=== PATIENT | female | born 1950 | race Caucasian/White ===

== ENCOUNTER 2018-08-26 08:16 | Outpatient (REF) | payer MEDICARE, SELFPAY ==
[2018-08-26 22:00] LABS: ALT 24 U/L (12-78); AST 19 U/L (15-37); Alkaline Phosphatase 74 U/L (46-116); Anion Gap 11.7 mmol/L (3-11); BUN 18 mg/dL (7-18); Bilirubin, Total 0.6 mg/dL (0.2-1.0); CO2 25.3 mmol/L (21.0-32.0); CREATININE 0.71 mg/dL (0.55-1.02); Calcium 9.2 mg/dL (8.5-10.1); Chloride 102 mmol/L (98-107); Glucose 89 mg/dL (70-100); Potassium 4.1 mmol/L (3.5-5.1); Sodium 139 mmol/L (136-145); Total Protein 7.1 g/dL (6.4-8.2)
[2018-08-26 22:14] LABS: Cholesterol 195 mg/dL (50-200); HDL Cholesterol 74 mg/dL (40-60); LDL CHOLESTEROL 91 mg/dL (<100); Triglyceride 181 mg/dL (30-150)
== END 2018-08-26 08:36 ==
LOC: NCHCN 08:16
PROVIDERS: PCP Family Medicine; Visit Provider Family Medicine
DX: E78.5 Hyperlipidemia, unspecified (principal)
CPT/HCPCS: 80053; 80061; 83721

== ENCOUNTER 2019-06-29 15:52 | Outpatient (REF) | payer MEDICARE, SELFPAY ==
[2019-06-29 21:40] LABS: Abs Immature Grans 0.03 k/cumm (0.0-0.09); Absolute Basophil Count 0.02 k/cumm (0.0-0.2); Absolute Eosinophil Count 0.03 k/cumm (0.0-0.7); Absolute Monocyte Count 0.89 k/cumm (0.11-0.7); Basophils % 0.2; Eosinophils % 0.3; HCT 46.1 % (36.0-46.0); HGB 15.5 g/dL (12.0-15.5); Immature Grans % 0.3; Mean Corp. HGB Concentration 33.6 g/dL (32.0-36.0); Mean Corpuscular Hemoglobin 29.9 pg (27.0-33.0); Mean Corpuscular Volume 88.8 fL (80-95); Mean Platelet Volume 12.2 fL (8.0-11.0); Monocytes % 7.9; Neutrophils % 67.3; Platelet Count 232 x1000/uL (130-400); RBC 5.19 m/cumm (4.00-5.20); RBC Distribution Width 13.4 % (11.7-14.6); White Blood Cell Count 11.25 k/cumm (4.4-10.8)
[2019-06-29 21:41] LABS: Absolute Neutrophil Count 7.57 k/cumm (1.2-6.7)
[2019-06-29 21:59] LABS: ALT 21 U/L (14-59); AST 14 U/L (15-37); Albumin 4.4 g/dL (3.4-5.0); Alkaline Phosphatase 79 U/L (46-116); Anion Gap 15.4 mmol/L (3-11); BUN 20 mg/dL (7-18); Bilirubin, Total 0.4 mg/dL (0.2-1.0); CO2 22.6 mmol/L (21.0-32.0); CREATININE 0.83 mg/dL (0.55-1.02); Calcium 9.3 mg/dL (8.5-10.1); Chloride 102 mmol/L (98-107); Glucose 89 mg/dL (70-100); HDL Cholesterol 85 mg/dL (40-60); LDL CHOLESTEROL 88 mg/dL (<100); Potassium 4.4 mmol/L (3.5-5.1); Sodium 140 mmol/L (136-145)
[2019-06-29 22:21] LABS: Hemoglobin A1C 5.6 % (4.5-6.2)
[2019-06-29 22:28] LABS: Creatine Kinase 66 U/L (26-192); Total Protein 7.7 g/dL (6.4-8.2)
== END 2019-06-29 16:12 ==
LOC: NCHCN 15:52
PROVIDERS: PCP Family Medicine; Visit Provider Nurse Practitioner Family
DX: E78.5 Hyperlipidemia, unspecified (principal); R42 Dizziness and giddiness; K30 Functional dyspepsia; R79.89 Other specified abnormal findings of blood chemistry
CPT/HCPCS: 80053; 82550; 83721; 83036; 83718; 85025

== ENCOUNTER 2019-10-08 12:27 | Outpatient (REF) | payer MEDICARE, SELFPAY ==
[2019-10-08 19:37] LABS: Anion Gap 13.1 mmol/L (3-11); BUN 15 mg/dL (7-18); CO2 24.9 mmol/L (21.0-32.0); CREATININE 0.71 mg/dL (0.55-1.02); Calcium 9.4 mg/dL (8.5-10.1); Chloride 103 mmol/L (98-107); Glucose 90 mg/dL (74-106); Sodium 141 mmol/L (136-145)
== END 2019-10-08 12:47 ==
LOC: NCHCN 12:27
PROVIDERS: PCP Family Medicine; Visit Provider Family Medicine
DX: I10 Essential (primary) hypertension (principal)
CPT/HCPCS: 80048

== ENCOUNTER 2019-11-10 02:13 | Outpatient (CLI) | payer MEDICARE, SELFPAY ==
--- NOTE | 2019-11-10 12:39 | DI.MAMMO_ITS ---
EXAM: MAMMO SCREENING CLINICAL HISTORY: SCREENING, [facility] Z00.00 TECHNIQUE: Mammograms were interpreted according to the usual protocol including computer analysis w [employer] system, tomosynthesis and C-view imaging. FINDINGS: The breasts are of moderate density with fairly symmetrical distribution of fibroglandular tissue. N o dominant mass or clumped microcalcification is identified in either breast. Current examination is compared with previous examinations including April 2018 and there has been no gross interval change in appearance in comparison with the previous studies. IMPRESSION: No specific evidence of malignancy at this time. Routine screening examinations are suggested at year ly intervals in this age group according to the ACS ACR guidelines. Category 1. Breast density, categ ory B. BI-RADS Cat 1 - Negative. Breast Density - Category B - Scattered areas of fibroglandular density.
== END 2019-11-10 02:33 ==
PROVIDERS: PCP Family Medicine; Visit Provider Family Medicine
DX: Z12.31 Encounter for screening mammogram for malignant neoplasm of breast (principal)
CPT/HCPCS: 77063; 77067

== ENCOUNTER → 2020-10-05 12:40 | Outpatient (BNVA) | payer MEDICARE, SELFPAY | PROVIDERS: PCP Family Medicine; Referring Provider Family Medicine; Visit Provider Nurse Practitioner Gerontology | DX: N39.46 Mixed incontinence (principal) | CPT/HCPCS: 81003; 99204 ==

== ENCOUNTER 2020-11-06 03:24 | Outpatient (CLI) | payer MEDICARE, SELFPAY ==
[2020-11-07 19:36] LABS: COVID-19 RT-PCR UVMMC Result Negative (Negative)
== END 2020-11-06 03:44 ==
PROVIDERS: Urology; PCP Family Medicine; Visit Provider Nurse Practitioner Gerontology
DX: Z11.59 Encounter for screening for other viral diseases (principal)
CPT/HCPCS: U0003

== ENCOUNTER 2020-11-10 06:12 | Day surgery (SDC) | payer MEDICARE, SELFPAY ==
[2020-11-10 06:22] VITALS: BP 139/88; PULSE 90; RESP 18; TEMP 36.7; O2SAT 97
[2020-11-10] MEDS: Lactated Ringers 1,000 ML 80 ML IV (06:53)
[2020-11-10] MEDS: CIPROFLOXACIN 400 MG/200 ML BAG 200 MG IVPB (07:04)
--- NOTE | 2020-11-10 07:05 | HPE_ITS ---
Date of service: 11/10/20 Time of Service: 07:06 Assessment and Plan Assessment and plan (1) Urinary urgency: Status: Acute Assessment and plan: For cystoscopy with transurethral injection of Botox 100 units into detrusor muscle. History of Present Illness History of Present Illness Chief Complaint: Urgency Incontinence Narrative: Gill is a 70-year-old female referred to urology by [facility] for urinary incontinence. Patient states that he is a mix of stress and urge incontinence but more urge incontinence that she would like addressed. She was on oxybutynin for several years and found it to be helpful until recently. Her PCP increase the dosage from 10 to 15 mg and in doing so caused tongue numbness. Patient is hesitant for any other medications related to this adverse effect. Patient notes that she has the ability to hold her urine unless she has a strong urge sensation and will not make it to the bathroom in time. Patient did undergo a procedure with Dr. Gomez several years ago for a sling. She finds it helps with her stress incontinence. She questions if she empties completely due to at times needing to add back to the bathroom shortly after she just voids. She notes that she has a slow stream. She has not seen blood in her urine. She denies dysuria, suprapubic discomfort, and flank pain. Review of Systems Narrative: No fevers or chills No dysphasia No diabetes or thyroid dysfunction No shortness of breath, cough or hemoptysis No chest pain or palpitations Hx GERD. No hepatitis, ulcers, jaundice, diarrhea or constipation No seizures, strokes or peripheral neuropathy No bleeding disorders or anemia No gout PFSH Medical History Acute tear medial meniscus Bursitis Colonoscopy planned Dizziness Glossodynia HLD (hyperlipidemia) Hypercholesteremia Hypertension Jaw fracture 1991 Overweight Stress Trochanteric bursitis of both hips Urinary incontinence Urinary urgency Surgical History Anterior Colporrhaphy Family History Mother Diabetes Essential hypertension Hyperlipidemia Father Essential hypertension Hyperlipidemia Myocardial infarction Social History Smoking/Tobacco Use Status: Never Smoking risk assessment performed?: Yes Alcohol Intake: current Alcohol Intake frequency: a few times a week Alcohol type: beer and hard liquor Substance use type: does not use Do you feel safe at home: Yes Do you feel safe in your relationship?: Yes Meds Home Medications and Allergies Home Medications Medication Instructions Recorded Confirmed Type rosuvastatin [Crestor] 20 mg PO DAILY tab-cap 03/13/18 11/10/20 History omeprazole 20 mg capsule,delayed 20 mg PO DAILY PRN 08/16/20 11/10/20 History release cholecalciferol (vitamin D3) 10 10 mcg PO DAILY 10/05/20 11/10/20 History mcg (400 unit) capsule sodium hyaluronate (viscosup) mg INTRA-ARTICULAR .q 7-8 months 10/05/20 10/05/20 History ml valsartan 40 mg tablet 40 mg PO DAILY tab 10/05/20 11/10/20 History Allergies Allergy/AdvReac Type Severity Reaction Status Date / Time Penicillins Allergy Severe Anaphylaxsi Unverified 11/10/20 06:31 s shellfish derived Allergy Severe Hives Unverified 11/10/20 06:31 Exam Const General: cooperative and comfortable Neck Neck: supple Resp Effort & Inspection: normal respiratory effort Auscultation: clear to auscultation bilaterally Cardio Rate: regular rate Rhythm: regular rhythm GI Palpation: soft and no guarding Neuro General: patient alert, patient awake and patient oriented x3 Results Last Vital Signs Temp 36.7 C 11/10/20 06:22 Pulse 90 11/10/20 06:22 Resp 18 11/10/20 06:22 BP 139/88 11/10/20 06:22 Pulse Ox 97 11/10/20 06:22 COVID-19 Screening Have you, or household traveled for leisure in last 14 days?: No Had IN PERSON contact w/suspected or confirmed C-19 person: No
[2020-11-10] MEDS: Lidocaine 2% Jelly 6 ML SYR (07:35)
--- NOTE | 2020-11-10 07:50 | W.PM.DSUDISC ---
Discharge Plan Disposition Patient Disposition: HOME Condition: Stable Discharge Details Reason For Visit: Urgency incontinence Attending Provider: Bob Dowell Primary Care Provider: Kiarra Degroot V Home Meds and New Rx's Prescriptions: No Action valsartan 40 mg tablet 40 mg PO DAILY RF: 0 cholecalciferol (vitamin D3) 10 mcg (400 unit) capsule 10 mcg PO DAILY RF: 0 Euflexxa 10 mg/mL(mw 2.4 -3.6 million) syringe intra-articular .q 7-8 months RF: 0 rosuvastatin [Crestor] 20 MG tablet 20 mg PO DAILY RF: 0 omeprazole 20 mg capsule,delayed release(DR/EC) 20 mg PO DAILY PRNRF: 0 Discharge Instructions Additional Instructions: No followup appt needed but ask pt to call office in @ 1 week to give us a progress report Activity:: Activity as Tolerated Shower/Bathe:: 24 hours Diet:: As Tolerated Discharge Orders Discharge Orders: Discharge Order (Routine); Ordered 11/10/20 Ordered By: Bob Dowell Discharge Data Discharge Comment: pt must void prior to discharge DS: Diagnosis Discharge Diagnosis (1) Urinary urgency: Status: Acute
--- NOTE | 2020-11-10 07:54 | W.PM.OP ---
Date of service: 11/10/20 Time of Service: 07:54 Operative Note Operative Note DATE OF PROCEDURE: 11/10/20 PRE-OP DIAGNOSIS: Urgency Incontinence POST-OP DIAGNOSIS: same PROCEDURE: Cystoscopy with transurethral injection of Botox into bladder SURGEON: Bob Dowell ANESTHESIA: other (general without intubation) ESTIMATED BLOOD LOSS: 0 PATHOLOGY: none sent COMPLICATIONS: None Patient was transported to: same day Patient's condition: stable Indications: This is a 70-year-old woman who has a history of urinary urgency and urgency incontinence. She had minimal improvement with anticholinergics and developed side effects related to higher dosing of anticholinergics. She elected not to try additional oral medications. She presents for an injection of Botox into the detrusor Findings: Normal-appearing bladder mucosa Procedure Description: The patient was brought to the operating room on 11/10/2020. After successful induction of general anesthesia without intubation, she was placed in the dorsal lithotomy position. Her genitalia was prepped and draped. 2% Xylocaine jelly was instilled into the urethra to act as a local anesthetic. A 20 Frisian urethrotome sheath was passed through the urethra into the bladder. The bladder was inspected with a 30 degree lens. The bladder mucosa was smooth with no papillary or nodular lesions. The base of the bladder was just slightly descended. Using a transurethral injection system, 100 units of Botox mixed in 20 mL of saline was injected into the detrusor muscle. We used a total of 20 injection sites on the posterior bladder wall. We used the grid pattern with 5 vertical rows and 4 horizontal rows. We avoided the trigone and the bladder neck with our injections. She tolerated this procedure well. She was taken back to the day surgery unit in stable condition.
[2020-11-10] MEDS: Phenazopyridine 200 MG TAB PO (08:17)
[2020-11-10 08:28] VITALS: BP 134/78; PULSE 72; RESP 17; TEMP 36.2; O2SAT 97
== END 2020-11-10 08:48 | disposition home or self-care (01) ==
PROVIDERS: PCP Family Medicine; Visit Provider Urology
PROC: (CPT 52287; principal; 2020-11-10 07:30)
DX: R39.15 Urgency of urination (principal)
CPT/HCPCS: 52287; NC; J0585; J0744; J2001; J2704

== ENCOUNTER 2021-02-06 12:38 | Outpatient (REF) | payer MEDICARE, SELFPAY ==
[2021-02-06 15:22] LABS: ALT 24 U/L (14-59); AST 18 U/L (15-37); Albumin 4.1 g/dL (3.4-5.0); Alkaline Phosphatase 87 U/L (46-116); Anion Gap 12.9 mmol/L (3-11); BUN 25 mg/dL (7-18); CO2 27.1 mmol/L (21.0-32.0); Calcium 9.2 mg/dL (8.5-10.1); Calculated LDL 85 mg/dL (<100); Chloride 105 mmol/L (98-107); Cholesterol 190 mg/dL (<200); Estimated GFR 54.66 (mL/min/1.73m2); Glucose 87 mg/dL (74-106); HDL Cholesterol 75 mg/dL (40-60); Potassium 4.6 mmol/L (3.5-5.1); Sodium 145 mmol/L (136-145); Total Protein 7.5 g/dL (6.4-8.2); Triglyceride 153 mg/dL (<150)
[2021-02-06 15:38] LABS: Bilirubin, Total 0.4 mg/dL (0.2-1.0)
== END 2021-02-06 12:39 | disposition home or self-care (01) ==
LOC: NCHCN 12:38
PROVIDERS: PCP Family Medicine; Visit Provider Family Medicine
DX: E78.89 Other lipoprotein metabolism disorders (principal); R79.89 Other specified abnormal findings of blood chemistry
CPT/HCPCS: 80053; 80061; 87077; 87086; 87186

== ENCOUNTER 2021-05-01 16:24 | Outpatient (REF) | payer MEDICARE, SELFPAY | END 2021-05-01 16:25 | disposition home or self-care (01) | LOC: NCHCN 16:24 | PROVIDERS: PCP Family Medicine; Visit Provider Family Medicine | DX: N39.0 Urinary tract infection, site not specified (principal) | CPT/HCPCS: 87077; 87086; 87186 ==

== ENCOUNTER → 2021-05-22 14:23 | Outpatient (BNVA) | payer MEDICARE, SELFPAY | PROVIDERS: PCP Family Medicine; Referring Provider Family Medicine; Visit Provider Nurse Practitioner Gerontology | DX: R39.15 Urgency of urination (principal); R32 Unspecified urinary incontinence | CPT/HCPCS: 99213 ==

== ENCOUNTER 2021-06-14 03:19 | Outpatient (CLI) | payer MEDICARE, SELFPAY ==
--- NOTE | 2021-06-14 | DI.DEXA_ITS ---
Exam(s) XR DEXA BONE DENSITY W/WO WILL EXAM: XR DEXA BONE DENSITY W/WO WILL CLINICAL HISTORY: SCREENING FOR OSTEOPOROSIS IN POSTMENOPAUSAL WOMAN,Z78.0,PREVENTATIVE HEALT TECHNIQUE: COMPARISON: Comparison examination is 06/25/2011. FINDINGS: Lateral Spine Image: Unremarkable. No compression deformities identified. Left hip: Total T-Score: 0.7. This compares to 1.4 on the prior examination. Total Z-Score: 2.3 T- and Z-scores: Within normal limits. Lumbar Spine: Total T-Score: 2.0. This compares to 1.4 on the prior examination. Total Z-Score: 4.2 T- and Z-scores: Within normal limits. IMPRESSION: No evidence of osteoporosis.
--- NOTE | 2021-06-14 | DI.MAMMO_ITS ---
Exam(s) MAMMO SCREENING EXAM: MAMMO SCREENING CLINICAL HISTORY: SCREENING, [facility],Z00.00 TECHNIQUE: Bilateral full field digital CC and MLO mammographic images were obtained with 3D tomosyn thesis and utilizing computer aided detection (CAD). COMPARISON: Available for comparison. FINDINGS: Masses/Architectural Distortion: None seen. Microcalcifications: No suspicious pleomorphic-type are seen. Skin Thickening/Nipple Retraction: None. IMPRESSION: 1. No significant interval change with no specific features of malignancy noted. 2. Unless there is more urgent need, screening mammography is recommended, as per [employer] guidelines. BI-RADS Category 1 - Negative Breast Density - Category B - Scattered areas of fibroglandular density Breast density category C or D implies that the patient has dense breast tissue. Dense breast tissue is very common and is not abnormal but dense breast tissue can make it harder to find cancer on a ma mmogram. Also, dense breast tissue may increase their breast cancer risk. This information about the result of the mammogram report was provided to the patient to raise their awareness. Use this report when you speak with the patient about their risks for breast cancer, which includes their family hist ory. At that time, you may recommend for more screening tests (Ultrasound or MRI) as they might be us eful based on their risk. A negative radiographic report should not delay biopsy if a dominant or clinically suspicious mass is present. Up to ten percent of cancers are not identified on mammography. A negative report may reinforce clinical impression. Adenosis and dense breasts may obscure an underlying neoplasm. False positive reports average 6 to 10%. Patient will receive a letter notifying them of these results.
== END 2021-06-14 03:39 ==
PROVIDERS: PCP Family Medicine; Visit Provider Family Medicine
DX: Z00.00 Encounter for general adult medical examination without abnormal findings (principal); Z13.820 Encounter for screening for osteoporosis; Z78.0 Asymptomatic menopausal state
CPT/HCPCS: 77063; 77067; 77080

== ENCOUNTER 2021-06-22 02:16 | Outpatient (CLI) | payer MEDICARE, SELFPAY ==
[2021-06-22 15:26] LABS: Source Nasal/Nares
[2021-06-22 17:59] LABS: COVID-19 PCR Negative (Negative)
== END 2021-06-22 02:17 | disposition home or self-care (01) ==
LOC: LBO 02:16
PROVIDERS: PCP Family Medicine; Visit Provider Urology
DX: Z20.822 Contact with and (suspected) exposure to COVID-19 (principal); Z01.818 Encounter for other preprocedural examination
CPT/HCPCS: 87635

== ENCOUNTER 2021-06-25 06:16 | Day surgery (SDC) | payer MEDICARE, SELFPAY ==
[2021-06-25 06:39] VITALS: BP 133/72; PULSE 75; RESP 18; TEMP 36.3; O2SAT 97
--- NOTE | 2021-06-25 06:53 | HPE_ITS ---
Date of service: 06/25/21 Time of Service: 06:53 Assessment and Plan Assessment and plan (1) Urinary urgency: Status: Acute (2) Urinary incontinence: Status: Acute Assessment and plan: For cystoscopy with transurethral injection of Botox into the detrusor muscle History of Present Illness History of Present Illness Chief Complaint: Urgency Incontinence Narrative: Gill is a 70-year-old female that is seen here in the urology clinic for urinary incontinence. She has a mix of stress and urge incontinence but finds that her urge incontinence is more notable. She did undergo a round of Botox injections approximately [address] Dowell. She found that the treatment worked for approximately 3 months and then has been wearing off since then. She would like to be considered for another round of Botox since she no joanie a positive effect from it. She still finds that there is some effect of the Botox but it is very minor and she is having more urinary leakage at this time. She currently denies dysuria, gross hematuria, suprapubic discomfort, flank pain or retention. She feels that she can empty out adequately. She has had no major health changes over the last 6 months. Review of Systems Narrative: No fevers or chills No vision change or dysphasia No diabetes or thyroid No shortness of breath, cough or hemoptysis No chest pain or palpitations Hx GERD. No hepatitis, ulcers, jaundice, diarrhea or constipation No seizures, strokes or peripheral neuropathy No bleeding disorders or anemia No gout PFSH Medical History Acute tear medial meniscus Bursitis Colonoscopy planned Dizziness Glossodynia HLD (hyperlipidemia) Hypercholesteremia Hypertension Jaw fracture 1991 Overweight Stress Trochanteric bursitis of both hips Urinary incontinence Urinary urgency Surgical History Anterior Colporrhaphy Family History Mother Diabetes Essential hypertension Hyperlipidemia Father Essential hypertension Hyperlipidemia Myocardial infarction Social History Smoking/Tobacco Use Status: Never Smoking risk assessment performed?: Yes Alcohol Intake: current Alcohol Intake frequency: a few times a week Alcohol type: beer and hard liquor Drug use: Never Substance use type: does not use Do you feel safe at home: Yes Do you feel safe in your relationship?: Yes Meds Allergies and Home Medications Allergies Allergy/AdvReac Type Severity Reaction Status Date / Time Penicillins Allergy Severe Anaphylaxsi Unverified 06/25/21 06:22 s shellfish derived Allergy Severe Hives Unverified 06/25/21 06:22 Home Medications Medication Instructions Recorded Confirmed Type rosuvastatin [Crestor] 20 mg PO DAILY tab-cap 03/13/18 06/25/21 History omeprazole 20 mg capsule,delayed 20 mg PO DAILY PRN 08/16/20 06/25/21 History release cholecalciferol (vitamin D3) 10 10 mcg PO DAILY 10/05/20 06/25/21 History mcg (400 unit) capsule sodium hyaluronate (viscosup) 10 mg INTRA-ARTICULAR .q 7-8 10/05/20 06/25/21 History months ml aspirin 81 mg tablet,delayed 81 mg PO DAILY 05/22/21 06/22/21 History release losartan 25 mg tablet 25 mg PO DAILY 05/22/21 06/25/21 History Exam Const General: cooperative and comfortable Neck Neck: supple Resp Effort & Inspection: normal respiratory effort Auscultation: clear to auscultation bilaterally Cardio Rate: regular rate Rhythm: regular rhythm GI Palpation: no masses Neuro General: patient alert, patient awake and patient oriented x3 Results Last Vital Signs Temp 36.3 C L 06/25/21 06:39 Pulse 75 06/25/21 06:39 Resp 18 06/25/21 06:39 BP 133/72 06/25/21 06:39 Pulse Ox 97 06/25/21 06:39
--- NOTE | 2021-06-25 06:59 | ANES.PREOP_ITS ---
General Info Date of Service Date Performed: 06/25/21 Height: 5 ft 1 in Weight: 85.6 kg Body Mass Index (BMI): 35.6 Surgical Procedure: Operation Date: 06/25/21 07:40 Proposed Procedures Side Surgeon p Cystoscopy/Injection botox Bob Dowell MD Meds Allergies and Home Medications Allergies Allergy/AdvReac Type Severity Reaction Status Date / Time Penicillins Allergy Severe Anaphylaxsi Unverified 06/25/21 06:22 s shellfish derived Allergy Severe Hives Unverified 06/25/21 06:22 Home Medication Medication Instructions Recorded rosuvastatin [Crestor] 20 mg PO DAILY tab-cap 03/13/18 omeprazole 20 mg capsule,delayed 20 mg PO DAILY PRN 08/16/20 release cholecalciferol (vitamin D3) 10 10 mcg PO DAILY 10/05/20 mcg (400 unit) capsule sodium hyaluronate (viscosup) 10 mg INTRA-ARTICULAR .q 7-8 10/05/20 months ml aspirin 81 mg tablet,delayed 81 mg PO DAILY 05/22/21 release losartan 25 mg tablet 25 mg PO DAILY 05/22/21 Current Visit Medications: Current Medications Generic Name Dose Route Start Last Admin Trade Name Freq PRN Reason Stop Dose Admin OnabotulinumtoxinA 100 units/ 0 units 06/25/21 06:00 Sodium Chloride 20 ml IJ 06/25/21 23:59 DIRECTED [facility] Ringer's Solution 1,000 mls @ 80 mls/hr 06/25/21 06:00 IV 06/25/21 23:59 INFUSION [facility] Ciprofloxacin 400 mg in 200 mls @ 200 mls/hr 06/25/21 06:00 Cipro I.V. IVPB 06/25/21 18:00 PREOP [facility] IV Miscellaneous Supplies 1 each 06/25/21 06:00 Iv Access IV 06/25/21 23:59 DIRECTED [facility] Sodium Chloride 0 ml 06/25/21 06:00 Normal Saline Flush 10 Ml Syr IV 06/25/21 23:59 PRN PRN Sodium Chloride 0 ml 06/25/21 06:00 Normal Saline 10 Ml Vial IJ 06/25/21 23:59 DIRECTED PRN Sterile Water 0 ml 06/25/21 06:00 Water,Injection,Sterile 10 Ml Vial IJ 06/25/21 23:59 DIRECTED PRN PFSH Active Problems Active Problems: Problem Status Onset Code Urinary urgency R39.15 Urinary incontinence R32 Medical History Medical History Acute tear medial meniscus Bursitis Colonoscopy planned Dizziness Glossodynia HLD (hyperlipidemia) Hypercholesteremia Hypertension Jaw fracture 1992 Overweight Stress Trochanteric bursitis of both hips Urinary incontinence Urinary urgency Surgical History Surgical History Anterior Colporrhaphy Tobacco Smoking/Tobacco Use Status: Never Alcohol Alcohol Intake: current Alcohol intake frequency: a few times a week Alcohol type: beer and hard liquor Substance Use Substance use: Never Substance use type: does not use Vital Signs and Lab Results Vital Signs Most Recent Vital Signs in EMR: Most Recent Vital Signs Temp Pulse Resp BP Pulse Ox 36.3 C L 75 18 133/72 97 06/25/21 06:39 06/25/21 06:39 06/25/21 06:39 06/25/21 06:39 06/25/21 06:39 Lab Results Blood Type / Crossmatch: No Data to Display Complete Blood Count: No Data to Display Complete Metabolic Panel: No Data to Display Liver Function Panel: No Data to Display Coagulation Panel: No Data to Display Cardiac Panel: No Data to Display Arterial Blood Gas: No Data to Display Venous Blood Gas: No Data to Display Pancreas Panel: No Data to Display Thyroid Panel: No Data to Display Infectious Disease: Coronavirus (COVID-19)(PCR) Negative (Negative) 06/22/21 09:26 06/22/21 Coronavirus 2019 Source Nasal/Nares 06/22/21 09:26 06/22/21 Blood Cultures: No Data to Display Toxicology Panel: No Data to Display Anesthesia Assessment and Plan Anesthesia History Personal History: No History of Anesthesia Complications Family History: No Family History of Anesthesia Complications Exercise Tolerance Exercise Tolerance: Metabolic Equivalents>4 Pertinent Negatives Pertinent Negatives: No Symptoms of GERD, No Major Cardiovascular Symptoms or Complaints, No Major Pulmonary Symptoms or Complaints and No History of CVA/TIA Cardiac & Pulmonary Exam Cardiac Exam: Normal S1/S2 Heart Sounds Pulmonary Exam: Clear Bilateral Breath Sounds Airway Exam Known Difficult Airway: No Mallampati Class: 2 Mouth Opening: Normal (> 3cm) Thyromental Distance: Greater than 3 cm Neck Range of Motion: Full ROM Neck Circumference: Normal Teeth Condition: Normal Dentition ASA Classification ASA Score: ASA 2 Emergency Case?: No NPO Status NPO Status: NPO Clears >2 hours, Solids >8 hours Anesthesia Plan Resuscitation Status: Full Code Anesthesia Technique: General Anesthesia Airway Planned: Natural Airway Monitors Used: Standard Monitors
[2021-06-25] MEDS: Lactated Ringers 1,000 ML 80 ML IV (07:05)
[2021-06-25 07:28] VITALS: BMI 35.6
[2021-06-25] MEDS: CIPROFLOXACIN 400 MG/200 ML BAG 200 MG IVPB (07:37)
[2021-06-25] MEDS: Lidocaine 2% Jelly 6 ML SYR (07:52)
[2021-06-25] MEDS: BOTULINUM TOXIN TYPE A 100 UNITS, Normal Saline 20 ML IJ (07:56)
--- NOTE | 2021-06-25 07:58 | W.PM.DSUDISC ---
Discharge Plan Disposition Patient Disposition: HOME Condition: Stable Discharge Details Attending Provider: Bob Dowell Primary Care Provider: Kiarra Degroot V Home Meds and New Rx's Prescriptions: No Action cholecalciferol (vitamin D3) 10 mcg (400 unit) capsule 10 mcg PO DAILY RF: 0 Euflexxa 10 mg/mL(mw 2.4 -3.6 million) syringe 10 mg intra-articular .q 7-8 months RF: 0 losartan 25 mg tablet 25 mg PO DAILY RF: 0 aspirin [Adult Low Dose Aspirin] 81 mg tablet,delayed release (DR/EC) 81 mg PO DAILY RF: 0 rosuvastatin [Crestor] 20 MG tablet 20 mg PO DAILY RF: 0 omeprazole 20 mg capsule,delayed release(DR/EC) 20 mg PO DAILY PRNRF: 0 Discharge Instructions Additional Instructions: No appointment needed but ask pt to call my office in @ 1 week to give us a progress report Activity:: Activity as Tolerated Shower/Bathe:: 24 hours Diet:: As Tolerated Discharge Orders Discharge Orders: Discharge Order (Routine); Ordered 06/25/21 Ordered By: Bob Dowell DS: Diagnosis Discharge Diagnosis (1) Urinary urgency: Status: Acute (2) Urinary incontinence: Status: Acute
--- NOTE | 2021-06-25 08:00 | W.PM.OP ---
Date of service: 06/25/21 Time of Service: 08:00 Operative Note Operative Note DATE OF PROCEDURE: 06/25/21 PRE-OP DIAGNOSIS: Urgency Incontinence POST-OP DIAGNOSIS: same PROCEDURE: Cystoscopy with transurethral injection of Botox in detrusor SURGEON: Bob Dowell ANESTHESIA TYPE: Local By Surgeon and General:No Airway Refer to Anesthesia Record ESTIMATED BLOOD LOSS: 0 PATHOLOGY: none sent COMPLICATIONS: None Patient was transported to: same day Patient's condition: stable Implants: 100 Units Botox (mixed in 20 mL saline) Indications: This is a 70 year old woman who has a history of mixed urinary incontinence. She presents for Botox injection into the detrusor muscle to treat the urgency component of her incontinence. Findings: Large rectocele Normal bladder Procedure Description: The patient was brought to the operating room on 06/25/2021. She was given preopertaive antibiotics. After successful induction of general anesthesia without intubation, she was placed in the dorsal lithotomy position. Her genitalia was prepped and draped. 2% xylocaine jelly was instilled into the urethra to act as a local anesthetic. A 20 Latvian urethrotome sheath was passed through the urethra into the bladder. The bladder was inspected with a 30 degree lens. The bladder mucosa was smooth with no papillary or nodular lesions. The base of the bladder was just slightly descended. Using a transurethral injection system, 100 units of Botox mixed in 20 mL of saline was injected into the detrusor muscle. We used a total of 20 injection sites on the posterior bladder wall. We used the grid pattern with 4 vertical rows and 5 horizontal rows. We avoided the trigone and the bladder neck with our injections. She tolerated this procedure well. She was taken back to the day surgery unit in stable condition.
[2021-06-25 08:08] VITALS: BP 129/79; PULSE 75; RESP 16; TEMP 36.3; O2SAT 99
--- NOTE | 2021-06-25 08:08 | W.ANESPOSTOP ---
Postoperative Evaluation Date, Time and Location Date Performed: 06/25/21 Time Performed: 08:08 Patient Location: Day Surgery Unit Vital Signs Most Recent Imported Vital Signs: Most Recent Vital Signs Temp Pulse Resp BP Pulse Ox 36.3 C L 75 18 133/72 97 06/25/21 06:39 06/25/21 06:39 06/25/21 06:39 06/25/21 06:39 06/25/21 06:39 Most Recent Manually Entered Vital Signs: Adult Blood Pressure: 114/70 Heart Rate: 78 Respirations: 16 Oxygen Saturation (%): 95 Temperature (C): 36.3 C Pain Score (0-10 Scale): 0 Pain Score Most Recent Pain Score: Most Recent Pain Score Pain Level 0 06/25/21 06:39 Assessment Mental Status: Awake (Alert & Oriented to Patient Baseline) Airway and Respiratory Function: Patent airway with normal (patient baseline) respiratory exam Cardiovascular Function: Hemodynamically Stable Hydration Status: Adequately Hydrated Nausea & Vomiting: No Nausea or Vomiting Pain: Pt. Denies Any Pain Peripheral Nerve Block: Patient did not receive a nerve block
[2021-06-25 08:10] VITALS: BP 114/70; PULSE 78; RESP 16; TEMPC 36.3; O2SAT 95
== END 2021-06-25 08:47 | disposition home or self-care (01) ==
PROVIDERS: PCP Family Medicine; Visit Provider Urology
PROC: (CPT 52287; principal; 2021-06-25 07:30)
DX: N32.81 Overactive bladder (principal); N39.46 Mixed incontinence; I10 Essential (primary) hypertension; E78.00 Pure hypercholesterolemia, unspecified; E66.3 Overweight; Z68.35 Body mass index [BMI] 35.0-35.9, adult
CPT/HCPCS: 52287; J0585; J0744; J2001

== ENCOUNTER 2021-07-19 16:47 | Outpatient (REF) | payer MEDICARE, SELFPAY | END 2021-07-19 16:48 | disposition home or self-care (01) | LOC: NCHCN 16:47 | PROVIDERS: PCP Family Medicine; Visit Provider Family Medicine | DX: R30.0 Dysuria (principal) | CPT/HCPCS: 87077; 87086; 87186 ==

== ENCOUNTER 2021-10-01 10:23 | Outpatient (CLI) | payer MEDICARE, SELFPAY ==
--- NOTE | 2021-10-01 09:45 | DI.RAD_ITS ---
Exam(s) XR KNEE RT 1V EXAM: XR KNEE RT 1V CLINICAL HISTORY: right knee pain. TECHNIQUE: 2D digital imaging was performed. COMPARISON: CR XR STANDING ALIGNMENT from 10/01/2021 CR XR STANDING ALIGNMENT from 10/01/2021 FINDINGS: Single lateral view of the right knee reveals no obvious fracture but there does appear to be a joint effusion and degenerative changes in all 3 compartments. IMPRESSION: DATA REPOSITORY: RADIATION DOSE DELIVERED:
--- NOTE | 2021-10-01 09:45 | DI.RAD_ITS ---
Exam(s) XR STANDING ALIGNMENT EXAM: XR STANDING ALIGNMENT CLINICAL HISTORY: right knee pain. TECHNIQUE: 2D digital imaging was performed. COMPARISON: No exams were available for comparison FINDINGS: Both hips appear unremarkable. 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 Lesser findings a re noted in the opposite-left knee. Ankles appear relatively unremarkable although there is some rakel rowing of the tibia 0 talar joint on its medial aspect. Bone density normal. No lytic osseous lesio ns identified. IMPRESSION: DATA REPOSITORY: RADIATION DOSE DELIVERED:
== END 2021-10-01 10:24 | disposition home or self-care (01) ==
LOC: DIORS 10:23
PROVIDERS: PCP Family Medicine; Referring Provider Family Medicine; Visit Provider Student in an Organized Health Care Education/Training Program
DX: M25.561 Pain in right knee (principal); M17.11 Unilateral primary osteoarthritis, right knee
CPT/HCPCS: 99213; 73560; 77073

== ENCOUNTER 2021-10-30 01:47 | Outpatient (CLI) | payer MEDICARE, SELFPAY ==
--- NOTE | 2021-10-30 07:30 | DI.US_ITS ---
APPROVED REPORT EXAM: Comprehensive 2D, Doppler, and color-flow Echocardiogram Patient Location: Out-Patient [facility] Supervisor: Sarah Vasquez RDCS (AE) Indications: Systolic heart murmur Other Information Study Quality: Adequate Conclusion Normal left ventricular wall thickness and chamber size. Estimated ejection fraction is 60%. Wall m otion is normal Normal right ventricular size and systolic function Both atria are normal in size The aortic valve is trileaflet and sclerotic. There is no aortic stenosis. There is mild aortic reg urgitation Mild to moderate mitral annular calcification. Mild mitral regurgitation Normal tricuspid valve with mild regurgitation. Estimated right ventricular systolic pressure is nor mal, 28 mmHg Wall motion Left Ventricle The left ventricle is normal size. The left ventricular systolic function is normal. The left ventric ular ejection fraction is within the normal range. There is normal left ventricular wall thickness. T here is normal LV segmental wall motion. There is no ventricular septal defect visualized. LVEF is 60 %. Right Ventricle The right ventricle is normal size. The right ventricular systolic function is normal. The RVSP is 27 .9mmHg. Atria The left atrium size is normal. The right atrium size is normal. The interatrial septum is intact wit h no evidence for an atrial septal defect. Aortic Valve The Aortic valve is sclerotic. Aortic valve is trileaflet. There is no aortic valvular stenosis. Mild aortic regurgitation. Mitral Valve Mild to moderate mitral annular calcification. No evidence of mitral valve stenosis. Mild mitral regu rgitation. Tricuspid Valve The tricuspid valve is normal in structure. There is no tricuspid valve stenosis. Mild tricuspid regu rgitation. Pulmonic Valve The pulmonary valve is normal in structure. There is no pulmonic valvular stenosis. Trace pulmonic re gurgitation. Great Vessels The aortic root is normal in size. The ascending aorta is normal in size. Aortic arch is normal in ca liber. IVC is normal in size and collapses >50% with inspiration. Pericardium There is no pericardial effusion. 2D Dimensions IVSD d PLAX 0.84 cm F: 0.6-1.0 LV Vol A2C d MOD 70.8 mL LVPW d PLAX 0.85 cm F: 0.6 - 1.0 LV Vol A4C d MOD 85.0 mL LVID d PLAX 4.31 cm F: 3.8 - 5.2 LA vol/ BSA A2C s A-L 26.0 mL/m2 LVDs 2.95 cm F: 2.2 - 3.5 LA vol/ BSA A4C s A-L 26.1 mL/m2 Ao Root d 3.00 cm F: 2.7 - 3.3 LA Vol/ BSA Biplane s A-L 28.2 mL/m2 RA Area A4C 11.81 cm2 LA Area A4C s MOD 17.28 cm2 RA Vol/ BSA A4C s A-L 16.2 mL/m2 LA Area A2C s MOD 15.94 cm2 Ao Asc Diam d 2.95 cm F: 2.3 - 3.1 LV EF A4C MOD 57.5 % LV EF Teichholz 59.6 % LV EF A2C MOD 57.5 % LVEF (Martínez's) 57.36 % F: 54 - 74 LV EF Biplane MOD 57.4 % LV Volume 64.28 mL F: 46 - 106 SV 47.38 mL LV Volume Index 35.91 mL/m2 F: 29 - 61 SV Index 26.36 mL/m2 LV Vol Biplane MOD 82.6 mL FS 31.40 % M-Mode TAPSE 2.53 cm (M/F) >1.7 LV Diastology MV E' medial 0.088 (>0.07 m/s) E/A Ratio 0.8 LV E/e MED 9.05 (<14) MV E Vmax 0.80 (0.4-1.3 m/s) MV E' lateral 0.062 (>0.1 m/s) MV A Vmax 0.95 (0.4-1.3 m/s) LV E/e LAT 12.80 (<14) MV E/A Ratio 0.80 MV E/E' medial 9.07 MV E/E' lateral 12.81 Aortic Valve LVOT Area 2.97 cm2 AoV Area Vmax 1.63 cm2 LVOT Vmax 0.90 m/s AoV Area/ BSA (Vmax) 0.91 cm2/m2 LVOT Mean Aleks. 0.57 m/s PREETI Mean Aleks. 1.62 cm2 LVOT Peak Grad 3.2 mmHg PREETI Mean Aleks. Index 0.90 cm2/m2 LVOT Mean Grad 1.6 mmHg AR DT 3327 msec LVOT VTI 0.216 m AR PHT 965 msec LVOT Diam s 1.90 cm AoV Vmax 1.64 m/s Velocity Ratio 0.54 AoV Mean Aleks. 1.04 m/s AoV Peak Grad 10.7 mmHg LVOT SV 64.16 mL AoV Mean Grad 5.1 mmHg AoV VTI 0.306 m AoV Area VTI 2.10 cm2 AoV Area/ BSA (VTI) 1.17 cm/m2 Mitral Valve MV DT 203 (160-240 msec) MV PHT 59 msec MV Area PHT 3.74 cm2 MV VTI 0.239 m MV Area VTI 2.69 (4.0-6.0 cm2) Pulmonary Valve PV Vmax 0.98 (0.5-1.5 m/s) RVOT Peak Gr. 1.59 mmHg PV Peak Grad 3.8 mmHg RVOT Mean Gr. 0.85 mmHg PV Mean Grad 2.0 mmHg RVOT VTI 0.141 m PV VTI 0.205 m RVOT Vmax 0.63 m/s Tricuspid Valve TR Peak Grad 24.8 mmHg TR Vmax 2.49 m/s RA Pressure 3.00 mmHg RVSP (TR) 27.9 mmHg
== END 2021-10-30 02:07 ==
PROVIDERS: PCP Family Medicine; Visit Provider Family Medicine
DX: R01.1 Cardiac murmur, unspecified (principal); I08.3 Combined rheumatic disorders of mitral, aortic and tricuspid valves
CPT/HCPCS: 93306

== ENCOUNTER → 2021-12-26 13:22 | Outpatient (BNVA) | payer MEDICARE, SELFPAY | PROVIDERS: PCP Family Medicine; Referring Provider Family Medicine | DX: M17.11 Unilateral primary osteoarthritis, right knee (principal) ==

== ENCOUNTER 2022-01-07 03:58 | Outpatient (CLI) | payer MEDICARE, SELFPAY ==
[2022-01-07 12:47] LABS: Source Nasal/Nares
[2022-01-07 16:04] LABS: COVID-19 PCR Negative (Negative)
== END 2022-01-07 03:59 | disposition home or self-care (01) ==
LOC: LBO 03:58
PROVIDERS: PCP Family Medicine; Visit Provider Student in an Organized Health Care Education/Training Program
DX: Z20.822 Contact with and (suspected) exposure to COVID-19 (principal); Z01.818 Encounter for other preprocedural examination
CPT/HCPCS: 87635; U0005

== ENCOUNTER 2022-01-07 04:26 | Outpatient (CLI) | payer MEDICARE, SELFPAY ==
[2022-01-07 10:36] LABS: Anion Gap 9.8 mmol/L (3-11); BUN 18 mg/dL (7-18); CO2 28.2 mmol/L (21.0-32.0); Calcium 9.6 mg/dL (8.5-10.1); Chloride 104 mmol/L (98-107); Glucose 102 mg/dL (74-106); Potassium 4.7 mmol/L (3.5-5.1); Sodium 142 mmol/L (136-145)
[2022-01-07 11:28] LABS: HCT 43.3 % (36.0-46.0); HGB 14.2 g/dL (11.2-15.7); MCH 29.2 pg (27.0-33.0); MCHC 32.8 % (32.0-36.0); MCV 88.9 fL (80-95); Platelet Count 186 10^3/uL (130-400); RBC 4.87 10^6/uL (3.93-5.22); RDW 13.2 % (11.7-14.6); RDW-SD 43.2 fL; WBC 8.53 10^3/uL (4.4-10.8)
== END 2022-01-07 04:27 | disposition home or self-care (01) ==
LOC: LBO 04:27
PROVIDERS: PCP Family Medicine; Visit Provider Student in an Organized Health Care Education/Training Program
DX: M25.561 Pain in right knee (principal); M17.11 Unilateral primary osteoarthritis, right knee; Z01.818 Encounter for other preprocedural examination; Z01.812 Encounter for preprocedural laboratory examination
CPT/HCPCS: 36415; 80048; 85027; 87635; U0005

== ENCOUNTER 2022-01-08 07:24 | Day surgery (SDC) | payer MEDICARE, SELFPAY ==
[2022-01-08] VITALS (9 sets, daily range): BP systolic 107–156; BP diastolic 62–87; PULSE 69–96; RESP 13–18; TEMP 36–36.5; O2SAT 96–99; BMI 35.1
--- NOTE | 2022-01-08 07:43 | W.PM.DS.N ---
DS: Diagnosis Discharge Diagnosis (1) Degenerative joint disease of right knee: Status: Acute Discharge Plan Disposition Patient Disposition: HOME Condition: Good Discharge Details Reason For Visit: Right Knee DJD Attending Provider: Alejo Chavez Primary Care Provider: Kiarra Degroot V Home Meds and New Rx's Prescriptions: New acetaminophen 500 mg tablet 1,000 mg PO Q8H PRN (Reason: pain) Qty: 90 3RF aspirin 81 mg tablet,delayed release (DR/EC) 81 mg PO BID Qty: 60 0RF celecoxib 200 mg capsule 200 mg PO BID PRN (Reason: pain) Qty: 60 1RF docusate sodium [Colace] 100 mg capsule 100 mg PO BID PRNQty: 10 0RF oxycodone 5 mg tablet 5 mg PO Q4H Qty: 18 0RF Continued cholecalciferol (vitamin D3) 10 mcg (400 unit) capsule 10 mcg PO DAILY 0RF losartan 25 mg tablet 25 mg PO DAILY 0RF rosuvastatin [Crestor] 20 MG tablet 20 mg PO DAILY 0RF omeprazole 20 mg capsule,delayed release(DR/EC) 20 mg PO DAILY PRN0RF Discontinued aspirin [Adult Low Dose Aspirin] 81 mg tablet,delayed release (DR/EC) 81 mg PO DAILY 0RF Discharge Instructions Additional Instructions: Total Knee Discharge Instructions Activity: The most important activity is to walk. You should try to take short walks a few times a day. It is important that when resting you work on keeping the knee straight. Avoid putting a pillow behind the knee as this will encourage flexion. Work on range of motion exercises as provided by Physical Therapy. If you have the [employer] bike coming, this will be your primary tool for exercise after the knee replacement. You should use it and follow the directions for the knee. Utilize the other exercises sparingly based on your symptoms. - Start outpatient physical therapy within 2 weeks. - You should wear the CHARITO hose on both legs for 2 weeks. You may remove these at night. You may also use any compression sock in place of the CHARITO hose. - Utilize [employer] to review exercises, see videos on exercises and obtain basic information pertaining to your surgery and your recovery. Dressing: Remove the Babak wrap by 2 days after your surgery and put on the CHARITO stocking given to you from the hospital. Keep the surgical dressing (underneath the BABAK wrap) in place for at least one week. After the first week it may be removed and replaced with light gauze and tape or nothing. The wound and dressing may get wet after 3 days but avoid soaking the dressing or otherwise it will need to be changed. Many people prefer covering the dressing with cling wrap (saran wrap) to minimize it from getting soaked. If it gets wet, just pat dry. If it starts to peel off then it will need to be changed. Medications: - You should take Tylenol and anti-inflammatory Celebrex as your primary pain control medications. If the Celebrex is too expensive or not covered, please call the office for another alternative (Advil/Ibuprofen or Naproxen/Aleve) - You have been prescribed a stronger pain medication Oxycodone for breakthrough pain, take as needed as prescribed. - You should also continue your stomach acid reduction agent Omeprazole to help reduce stomach acid and reflux. - You will be taking Aspirin 81mg twice a day for DVT prevention unless instructed otherwise. - If you have constipation you should take Colace or Miralax (both [id number]-[id number]). It takes most people 3-4 days to have a bowel movement. Follow-up: 2 weeks If you have any acute concerns or questions, please do not hesitate to contact the office at [phone]. You may contact Dr. Chavez with any questions after hours through the hospital at [phone] or on his cell phone at [phone]. Referrals: Alejo Chavez MD [ [facility]YSICIAN] - Equipment/Supplies: Walker Activity:: Activity as Tolerated Shower/Bathe:: 72 hours Diet:: As Tolerated Discharge Orders Discharge Orders: Discharge Order (Routine); Ordered 01/08/22 Ordered By: Alejo Chavez DS: Summary Time Spent with Patient providing and/or coordinating discharge services: Less than 30 minutes Status at Discharge Functional status at discharge: uses cane/walker Overall status at discharge: patient is progressing back to baseline Mental Status: mental status grossly normal Speech and Movement: speech and movement normal Mood: congruent mood Affect: normal affect Exam Psych Mental Status: mental status grossly normal Speech and Movement: speech and movement normal Mood: congruent mood Affect: normal affect PFSH All Active Problems Overweight (Acute 03/13/18) Degenerative joint disease of right knee (Acute) Urinary urgency (Acute) Urinary incontinence (Acute) Medical History Acute tear medial meniscus Colonoscopy planned Glossodynia HLD (hyperlipidemia) Hypercholesteremia Hypertension Overweight Stress Trochanteric bursitis of both hips Surgical History Anterior Colporrhaphy History of tubal ligation Jaw fracture 1991 Hardware Status post cystoscopy Family History Mother Diabetes Essential hypertension Hyperlipidemia Father Essential hypertension Hyperlipidemia Myocardial infarction Social History Smoking/Tobacco Use Status: Never Smoking risk assessment performed?: Yes Alcohol Intake: current Alcohol Intake frequency: a few times a week Alcohol type: beer and hard liquor Drug use: Never Substance use type: does not use current occupation: retired - manager educational/pharmacy cashier at a small [employer] after working at [employer] Current gender identity: female Do you feel safe at home: Yes Do you feel safe in your relationship?: Yes
--- NOTE | 2022-01-08 08:12 | W.ANESPRE ---
General Info Date of Service Date Performed: 01/08/22 Height: 5 ft 1 in Weight: 84.3 kg Body Mass Index (BMI): 35.1 Surgical Procedure: Operation Date: 01/08/22 10:10 Proposed Procedure Side Surgeon p Knee Total Arthroplasty Right Alejo Chavez MD Meds Allergies and Home Medications Allergies Allergy/AdvReac Type Severity Reaction Status Date / Time Penicillins Allergy Severe Anaphylaxsi Unverified 01/04/22 09:10 s shellfish derived Allergy Severe Hives Unverified 01/04/22 09:10 Home Medication Medication Instructions Recorded rosuvastatin 20 mg tablet (Crestor) 20 mg PO DAILY tab-cap 03/13/18 omeprazole 20 mg capsule,delayed 20 mg PO DAILY PRN 08/16/20 release cholecalciferol (vitamin D3) 10 10 mcg PO DAILY 10/05/20 mcg (400 unit) capsule aspirin 81 mg tablet,delayed 81 mg PO DAILY 05/22/21 release (Adult Low Dose Aspirin) losartan 25 mg tablet 25 mg PO DAILY 05/22/21 Current Visit Medications: Current Medications Generic Name Dose Route Start Last Admin Trade Name Freq PRN Reason Stop Dose Admin Acetaminophen 1,000 mg 01/08/22 06:00 Acetaminophen 500 Mg Tab PO 01/08/22 16:00 PREOP SEBLE Acetaminophen 1,000 mg 01/08/22 08:30 Acetaminophen 500 Mg Tab PO TID SEBLE Aspirin 81 mg 01/08/22 08:30 Aspirin E.C. 81 Mg Tabec PO BID SEBLE Celecoxib 400 mg 01/08/22 06:00 Celecoxib 200 Mg Cap PO 01/08/22 16:00 PREOP SEBLE Celecoxib 200 mg 01/08/22 08:30 Celecoxib 200 Mg Cap PO BID SEBLE Docusate Sodium 100 mg 01/08/22 07:27 Docusate Sodium 100 Mg Cap PO BID PRN PRN Constipation Gabapentin 300 mg 01/08/22 06:00 Gabapentin 300 Mg Cap PO 01/08/22 16:00 PREOP SEBLE Gabapentin 300 mg 01/08/22 22:00 Gabapentin 300 Mg Cap PO HS SEBLE Hydromorphone HCl 0.5 mg 01/08/22 07:27 Hydromorphone 2 Mg/Ml Vial IVP Q2H PRN PRN Tranexamic Acid 1,000 mg/ 60 mls @ 360 mls/hr 01/08/22 06:00 Sodium Chloride IVPB 01/08/22 16:00 PREOP SEBLE Ringer's Solution 1,000 mls @ 80 mls/hr 01/08/22 06:00 IV 01/31/22 23:59 INFUSION SEBLE Clindamycin Phosphate/Dextrose 900 mg in 50 mls @ 50 mls/hr 01/08/22 06:00 Cleocin In D5w IVPB 01/08/22 16:00 PREOP SEBLE Clindamycin Phosphate/Dextrose 600 mg in 50 mls @ 100 mls/hr 01/08/22 07:45 Cleocin In D5w IVPB Q8H [facility] IV Miscellaneous Supplies 1 each 01/08/22 06:00 Iv Access IV 01/31/22 23:59 DIRECTED SEBLE Ondansetron HCl 4 mg 01/08/22 07:27 Ondansetron 4 Mg/2 Ml Vial IVP Q6H PRN PRN Nausea Oxycodone HCl 0 mg 01/08/22 07:27 Oxycodone 5 Mg Tab PO Q3H PRN PRN Pain Pantoprazole Sodium 40 mg 01/08/22 07:30 Pantoprazole 40 Mg Tabcr PO DAILY@0730 [facility] Polyethylene Glycol 17 gm 01/08/22 07:27 Polyethylene Glycol 3350 17 Gm Packet PO BID PRN PRN Constipation Sodium Chloride 0 ml 01/08/22 06:00 Normal Saline Flush 10 Ml Syr IV 01/31/22 23:59 PRN PRN Sodium Chloride 0 ml 01/08/22 06:00 Normal Saline 10 Ml Vial IJ 01/31/22 23:59 DIRECTED PRN Sterile Water 0 ml 01/08/22 06:00 Water,Injection,Sterile 10 Ml Vial IJ 01/31/22 23:59 DIRECTED PRN PFSH Active Problems Active Problems: Problem Status Onset Code Overweight 03/13/18 E66.3 Degenerative joint disease of right knee M17.11 Urinary urgency R39.15 Urinary incontinence R32 Medical History Medical History Acute tear medial meniscus Colonoscopy planned Glossodynia HLD (hyperlipidemia) Hypercholesteremia Hypertension Overweight Stress Trochanteric bursitis of both hips Surgical History Surgical History Anterior Colporrhaphy History of tubal ligation Jaw fracture 1992 Hardware Status post cystoscopy Tobacco Smoking/Tobacco Use Status: Never Alcohol Alcohol Intake: current Alcohol intake frequency: a few times a week Alcohol type: beer and hard liquor Substance Use Substance use: Never Substance use type: does not use Vital Signs and Lab Results Vital Signs Most Recent Vital Signs in EMR: Most Recent Vital Signs Temp Pulse Resp BP Pulse Ox 36.2 C L 96 H 16 156/83 H 96 01/08/22 07:41 01/08/22 07:41 01/08/22 07:41 01/08/22 07:41 01/08/22 07:41 Lab Results Blood Type / Crossmatch: No Data to Display Complete Blood Count: White Blood Count 8.53 10^3/uL (4.4-10.8) 01/07/22 11:23 01/07/22 Red Blood Count 4.87 10^6/uL (3.93-5.22) 01/07/22 11:23 01/07/22 Hemoglobin 14.2 g/dL (11.2-15.7) 01/07/22 11:23 01/07/22 Hematocrit 43.3 % (36.0-46.0) 01/07/22 11:23 01/07/22 Platelet Count 186 10^3/uL (130-400) 01/07/22 11:23 01/07/22 Complete Metabolic Panel: Sodium Level 142 mmol/L (136-145) 01/07/22 09:10 01/07/22 Potassium Level 4.7 mmol/L (3.5-5.1) 01/07/22 09:10 01/07/22 Chloride Level 104 mmol/L (98-107) 01/07/22 09:10 01/07/22 Carbon Dioxide Level 28.2 mmol/L (21.0-32.0) 01/07/22 09:10 01/07/22 Blood Urea Nitrogen 18 mg/dL (7-18) 01/07/22 09:10 01/07/22 Creatinine 1.0 mg/dL (0.55-1.02) 01/07/22 09:10 01/07/22 Estimated GFR/1.73 m2 54.50 (mL/min/1.73m2) 01/07/22 09:10 01/07/22 Calcium Level 9.6 mg/dL (8.5-10.1) 01/07/22 09:10 01/07/22 Glucose Level 102 mg/dL (74-106) 01/07/22 09:10 01/07/22 Liver Function Panel: No Data to Display Coagulation Panel: No Data to Display Cardiac Panel: No Data to Display Arterial Blood Gas: No Data to Display Venous Blood Gas: No Data to Display Pancreas Panel: No Data to Display Thyroid Panel: No Data to Display Infectious Disease: Coronavirus (COVID-19)(PCR) Negative (Negative) 01/07/22 09:16 01/07/22 Coronavirus 2019 Source Nasal/Nares 01/07/22 09:16 01/07/22 Blood Cultures: No Data to Display Toxicology Panel: No Data to Display Imaging and Studies Imaging and Studies Study information below may be from another EMR and interpreted by another provider. Please see original notes in EMR for more complete details. Echocardiogram Summary: Conclusion Normal left ventricular wall thickness and chamber size. Estimated ejection fraction is 60%. Wall motion is normal Normal right ventricular size and systolic function Both atria are normal in size The aortic valve is trileaflet and sclerotic. There is no aortic stenosis. There is mild aortic regurgitation Mild to moderate mitral annular calcification. Mild mitral regurgitation Normal tricuspid valve with mild regurgitation. Estimated right ventricular systolic pressure is normal, 28 mmHg Anesthesia Assessment and Plan Anesthesia History Personal History: No History of Anesthesia Complications Family History: No Family History of Anesthesia Complications Exercise Tolerance Exercise Tolerance: Metabolic Equivalents>4 Pertinent Negatives Pertinent Negatives: No Major Cardiovascular Symptoms or Complaints and No Major Pulmonary Symptoms or Complaints Cardiac & Pulmonary Exam Cardiac Exam: Normal S1/S2 Heart Sounds Pulmonary Exam: Clear Bilateral Breath Sounds Implantable Cardiac Device Does patient have a Pacemaker or an ICD?: No Airway Exam Known Difficult Airway: No Mallampati Class: 2 Mouth Opening: Normal (> 3cm) Thyromental Distance: Greater than 3 cm Neck Range of Motion: Full ROM Neck Circumference: Normal Teeth Condition: Normal Dentition ASA Classification ASA Score: ASA 2 Emergency Case?: No NPO Status NPO Status: NPO Clears >2 hours, Solids >8 hours Anesthesia Plan Resuscitation Status: Full Code Anesthesia Technique: Spinal Anesthesia Airway Planned: Natural Airway Monitors Used: Standard Monitors
[2022-01-08] MEDS: Lactated Ringers 1,000 ML 80 ML IV (08:17)
[2022-01-08] MEDS: Celecoxib 200 MG CAP 400 MG PO (08:22)
[2022-01-08] MEDS: Acetaminophen 500 MG TAB 1000 MG PO (08:22)
[2022-01-08] MEDS: Gabapentin 300 MG CAP PO (08:22)
[2022-01-08] MEDS: CLINDAMYCIN 900 MG/50 ML BAG 50 MG IVPB (09:19)
[2022-01-08] MEDS: Bupivacaine 0.25% Pres-Free 30 ML VIAL (09:54)
[2022-01-08] MEDS: Normal Saline 20 ML VIAL (09:55)
[2022-01-08] MEDS: Ketorolac 30 MG/ML VIAL (09:55)
--- NOTE | 2022-01-08 09:59 | W.ANESNERVE ---
Nerve Block Single Injection Procedure Date and Time Date Performed: 01/08/22 Procedure Start: 08:40 Location Where Procedure Performed Procedure Location: Day Surgery Unit Reason Performed: Postoperative Analgesia Requesting Provider: Alejo Chavez Timeout Performed Timeout Performed: Yes Monitoring Used ECG, Blood Pressure, SpO2 and See EMR for corresponding vital signs Sterility Sterility: Hand Hygiene, Surgical Cap, Surgical Mask, Sterile Gloves, Eye Protection and Chlorhexidine Sedation Given During Procedure Sedation Given (Indicate Dose Given): No Sedation given Patient Mental Status Patient Mental Status: Awake Nerve Block 1st Nerve Block: Laterality: Right Block Type: Adductor Canal Needle / Catheter Used: 100mm SonoPlex II Local Anesthetic Bolus (Indicate Dose Given): Lidocaine used for local infiltration of skin, Injected in 3-5ml increments after negative blood aspiration and Bupivacaine 0.25% Dose:: 15mL Additives (Indicate Dose Given): None Ultrasound: Sterile probe cover and gel used Ultrasound Image Saved?: Yes Nerve Stimulator: Not Used Paresthesia: None Procedure Tolerated: No Complications Procedure Outcome: Successful Performed By: Edna Ryder
[2022-01-08] MEDS: oxyCODONE 5 MG TAB PO (12:39)
--- NOTE | 2022-01-08 13:17 | IN_ITS ---
Date of service: 01/08/22 Time of Service: 13:17 PT Notes Visit Reasons: Right Knee DJD Physical Therapy Day Surgery Initial Evaluation Date: 01/08/2022 Referring Doctor: ANTONIO Rodriguez PT Orders: PT CONSULT: Status post Ortho surgery Precautions: WBAT on right LE with AD. Patient Profile/Admitting Diagnosis: Oh Matthews is a 71-year-old female with degenerative joint disease of the right knee and is status post right total knee arthroplasty on postoperative day 0. PMHX: Medical History?(Updated 12/26/21 @ 13:39 by Nissa Owen) Acute tear medial meniscus Colonoscopy planned Glossodynia HLD (hyperlipidemia) Hypercholesteremia Hypertension Overweight Stress Trochanteric bursitis of both hips Surgical History?(Updated 12/26/21 @ 13:39 by Nissa Owen) Anterior Colporrhaphy History of tubal ligation Jaw fracture 1991 Hardware Status post cystoscopy Social History/Home Situation: Lives with in a private home with 4 steps to enter with a rail on 1 side. Equipment Owned/DME: [employer] Subjective: Agreeable to PT consult. Objective: General Observation: Babak wraps to right LE. Cryo/Cuff to right LE. CHARITO is on left leg. Mental Status: Alert and oriented x4 Pain: 3-4/10 pain in the right knee ROM: Right Lower Extremity: Hip flexion WFL. Hip abduction WFL. Knee flexion 10 degrees to 90 degrees. Knee extension -10 degrees. Ankle dorsiflexion WFL. Ankle plantarflexion WFL. Left Lower Extremity: Hip flexion WFL. Hip abduction WFL. Knee flexion WFL. Ankle dorsiflexion WFL. Ankle plantarflexion WFL. Strength: Right Lower Extremity: Hip flexors 5/5. Hip abductors 5/5. Knee flexors 5/5. Knee extensors 3-/5. Ankle dorsiflexors 3-/5. Ankle plantarflexors 5/5. Left Lower Extremity:Hip flexors 5/5. Hip abductors 5/5. Knee flexors 5/5. Knee extensors 5/5. Ankle dorsiflexors 5/5. Ankle plantarflexors 5/5. Sensation: Intact as to pain and light touch in bilateral lower extremities. Bed Mobility/Transfers: Supine to sit standby assist Sit to stand standby assist Stand to sit standby assist Bed to chair standby assist Gait: Instructed patient with level surface ambulation of up to 150 feet using front wheel walker with through gait pattern requiring contact-guard assist for safety. No loss of balance. Shortness of breath. Stairs: Negotiated up-and-down 6 x 4 inch steps and 4 x 6 inch steps of holding onto 1 rail requiring minimal verbal cues for safe technique and safety. Balance: Static Sitting: Normal Dynamic Sitting: Normal Static Standing: Fair Dynamic Standing: Fair Special Tests: Mobility Limitations Standardized Measure [facility] 6 clicks Basic Mobility Inpatient Short Form: Raw Score: 22 CMS Score: 21% deficit Informed Consent/Education: Patient instructed in purpose of PT consult. Education and training on initial set of exercises that can be done at home have been completed with patient. Assessment: Gill requires the use of a front wheeled walker for all mobility ADL performance ability to reduce fall risk dependence. Patient presents with clinical signs and symptoms consistent with current/admitting diagnoses that have resulted to mobility limitations, gait instability, generalized weakness, and impairment of motor control as demonstrated by the following impairment level findings: 1. Decreased strength to right knee major muscle groups 2. Impaired standing balance 3. Limitation of joint range of motion in right knee Impairments are contributing to the following functional limitations: 1. Inability to safely ambulate without assistive device 2. Increase completion time for mobility ADL performance 3. Increased fall risk Patient is assessed as a 29714 moderate complexity based on the following: History: 71-year-old female with impairment level findings, functional limitations, and past medical history as indicated above Examination: Demonstrable impairment in strength, balance, and mobility level with underlying impairments and functional limitations as documented above Presentation: Evolving Decision Makin moderate complexity Goals: N/A. PT evaluation and 1-2 treatment sessions only for functional mobility training using recommended AD and for HEP instruction Plan of Care/Treatment Plan: N/A. PT evaluation and 1-2 treatment session only for functional mobility training using recommended AD and for HEP instruction. DISCHARGE RECOMMENDATIONS: [] Home with no services [] [] Home with services [specify] [X] Home with outpatient PT. Home when medically cleared by orthopedic surgery. Will benefit from outpatient PT services in order to facilitate return to independent community ambulation without an assistive device. [] SNF for continued rehabilitation [] [] Retirement Care [] [] SNF versus LTC based on ability to participate and progress [] . TREATMENT CODE/TIME: 55851 x 20 minutes, 37021 x 18 minutes beginning at 13:17 PM. Thank you for the opportunity to participate in the care of this patient. Gill Watson PT, DPT, CLT [facility] [place], [place]
--- NOTE | 2022-01-08 14:21 | W.ANESPOSTOP ---
Postoperative Evaluation Date, Time and Location Date Performed: 01/08/22 Time Performed: 14:21 Patient Location: Day Surgery Unit Vital Signs Most Recent Imported Vital Signs: Most Recent Vital Signs Temp Pulse Resp BP Pulse Ox 36.2 C L 72 18 116/87 99 01/08/22 12:32 01/08/22 12:32 01/08/22 12:32 01/08/22 12:32 01/08/22 12:32 Pain Score Most Recent Pain Score: Most Recent Pain Score Pain Level 2 01/08/22 13:05 Assessment Mental Status: Awake (Alert & Oriented to Patient Baseline) Airway and Respiratory Function: Patent airway with normal (patient baseline) respiratory exam Cardiovascular Function: Hemodynamically Stable Hydration Status: Adequately Hydrated Nausea & Vomiting: No Nausea or Vomiting Pain: Pain is tolerable per patient Peripheral Nerve Block: Regional nerve block not resolved at time of post operative discharge
--- NOTE | 2022-01-08 19:47 | W.PM.OP ---
Date of service: 01/08/22 Time of Service: 10:50 Operative Note Operative Note DATE OF PROCEDURE: 01/08/22 PRE-OP DIAGNOSIS: Right Knee Osteoarthritis POST-OP DIAGNOSIS: same PROCEDURE: Right Total Knee Replacement SURGEON: Alejo Chavez SURVEILLANCE SUPERVISOR: Nissa Owen Refer to Anesthesia Record ESTIMATED BLOOD LOSS: 300 PATHOLOGY: none sent TOURNIQUET TIME: 42 COMPLICATIONS: None Patient was transported to: PACU Patient's condition: stable Implants: 1. Depuy Attune Cruciate Retaining Femoral Component, Size 4 Narrow 2. Depuy Attune Rotating Platform Tibial Component, Size 3 3. Depuy Attune 4x10mm CR,RP Poly 4. Depuy Attune Patellar Component, Size 35 Indications: I have seen Gill in clinic for symptoms of knee arthritis, confirmed with radiographic findings. She has exhausted nonoperative methods and was having significant limitations in daily function and desired better function and less pain. I discussed the technical details of a knee replacement. I explained the risks of the procedure to include, but not limited to, bleeding, infection, pain, stiffness, fracture, damage to nerves and vessels, damage to muscles and tendons, loosening, need for repeat procedure, blood clot and cardiopulmonary demise. Despite these risks, Gill elected to proceed. Findings: There was significant signs of arthritis throughout the knee. Procedure Description: Gill was greeted in the preoperative holding area where the correct side was identified and marked. The consent was reviewed with the patient and signed. The history and physical was updated. All questions were answered. Preoperative mediacations were administered: Acetaminophen 1000mg, Celebrex 400mg, and Gabapentin 300mg. An adductor canal block was then administered by the anesthesia team in the PACU. She was taken back to the operating room. A spinal anesthestic was then administered. The patient was placed into the supine position on the operating room table. A nonsterile tourniquet was placed high onto the leg. Posts were placed for positioning during the procedure. All bony prominences were well padded. Prophylactic antibiotics in the form of Clindamycin were administered. 1g of Tranxemic Acid was given intravenously within 30 minutes of incision. The right leg was then prepped with Chloraprep and draped in a standard fashion with impervious stockinette and extremity drape. A second prep with Chloraprep was performed prior to placing Ioband. A timeout to confirm correct identity, side and site, procedure, allergies, anesthesia, and medical concerns was performed. With the knee in some flexion, a midline incision was made overlying the knee. Full thickness skin flaps were raised once the extensor mechanism was encountered. These were raised medially and laterally. Any bleeding was controlled with electrocautery. Once the extensor mechanism was fully exposed, a medial parapatellar arthrotomy was performed in a flexed position. All bleeding from the arthrotomy and the geniculate arteries was coagulated. A medial subperiosteal peel was performed with electrocautery to the midcoronal plane. The fat pad was removed while keeping the patellar tendon protected. The anterior distal femur synovium was removed for later visualization. The ACL and PCL were resected and the anterior horn of the lateral meniscus was transected. The knee was then flexed with the patella everted. Large osteophytes from the tibia were removed. Large osteophytes from the femur were removed. Using a step drill, and based on preoperative templating, the femoral canal was entered. This was done with a step drill without any difficulty. The intramedullary distal femoral cut guide was inserted, set to a 6 degree valgus cut and 9mm cut thickness. The distal femoral cut guide was then held in position and pinned. With the soft tissues protected, the distal cut was performed. This was passed over a few times to ensure a planar cut. I then turned attention to the tibia. The extramedullary guide was placed onto the leg. The distal aspect was slid medial to adjust for position of center of ankle and stay in line with shaft of the tibia. Approximately 3-5 degrees of posterior slope was kept in the proximal cutting guide. The center of the guide was aligned with the PCL. The stylus was used to assess cut thickness. There was a relateively balanced cut based on the preoperative x-rays, with 5mm from the lateral side and 7mm from the medial side. This was then held in position and pinned into place with 2 additional pins and a cross pin for stability. The medial and lateral collateral ligaments were protected and the cut was performed. With this completed, it was assessed and noted to be of appropriate dimensions. The guide was removed. A spacer block was inserted and the knee was brought into extension. The 8mm spacer block provided full extension, without hyperextension and with stability of both the medial and lateral collateral ligaments was assessed. The pins from the femur and the tibia were then removed. The distal femur was then sized. The anterior stylus was placed onto the lateral ridge of the anterior femur. This indicated a size 4 narrow femur. The external rotation of the guide was adjusted to 5 degrees to match the epicondylar axis, perpendicular to [place]?s line. The 4-in-1 cutting guide was the placed. The posterior medial femur cut was evaluated and appeared of good thickness. The spacer block was inserted underneath the cutting guide and stability was confirmed in 90 degrees of flexion. An ronaldo wing was used to confirm appropriate position of the anterior cut to avoid notching. This cutting guide was ensured to be flush on the cut surface and then pinned into place with headed pins. While protecting the soft tissues, quad tendon, and collateral ligaments, the anterior and posterior cuts were performed with a saw. The central two pins were removed and the posterior and anterior chamfers were cut next. The notch-cutting guide was placed. This was pinned to lateralize the femoral component as much as possible while keeping it flush on the cut surface. This was then pinned into position. A reciprocating saw was used to make the small notch cut. A trial CR femoral component was then inserted, impacted down to the cut surfaces, and the lug holes were drilled. A provisional trial tibial component was placed and the knee was brought through range of motion. The polyethylene was trialed until there was good flexion and extension with excellent stability to the medial and lateral collaterals. The patella was tracking without thumbs. The tibial cut surface was fully exposed. The medial and lateral menisci were removed. The tibia was then sized as a 3. The tibia had been previously marked during trialing to correspond to the center of the tibial component to help with rotation. The trial was aligned to this mariah, approximately rotated to the medial 1/3rd of the tibial tubercle. The trial was pinned into place. The tibia was prepared with a reamer and a keel punch. The knee was then brought into extension and the patella was measured as 22mm. Using the patellar clamp and cut guide, this was resected to a flat surface with at least 13mm of thickness remaining. The size 35 patella fit the best. This was oriented and then clamped into position. The lugs were drilled. The trial components were removed. The final components, except for the polyethylene were opened on the back table. The periosteal and capsular tissues, especially posteriorly, around the knee were then systematically injected with a periarticular cocktail consisting of 50cc 0.25% Marcaine, 30mg Ketorolac, 20cc of Exparal and 50cc of injectable saline. The tourniquet was then inflated to 275mmHg. The knee was thoroughly irrigated with a pulse lavage and dried. On the back table, with the implants opened, the cement was mixed. 2 batches of medium viscosity cement were prepared with vacuum assistance. After the cement was ready it was placed on to the back side of the tibial component. A small amount was placed onto the posterior flange of the femur. Cement was manual pressurized and impregnated into the cut surface of the tibia. The tibial component was then inserted into the cut surface and impacted into position. Excess cement was removed and the component was reimpacted. Again, excess cement was removed and our attention was then turned to the femur. The femoral cut surface was once again dried and cement was manually impacted into the cut surface. The femoral component was lined with the lug holes and impacted. Excess cement was removed. It was ensured to be down against the cut surface. The trial polyethylene was then inserted and the leg was brought out into full extension for the duration of the cement curing process, approximately 18min. Cement was lastly manually impacted into the cut surface of the patella and the patellar button was clamped into position and held. During this process attention was turned to the gutters of the knee and for all interfaces for any excess cement. While the cement was hardening, the knee was irrigated with Irrisept chlorhexadine solution. It was allowed to sit in the knee for 3 minutes. After the cement had finally cured, approximately 18min, the clamp was removed from the patella and the knee was taken through range of motion. A size 10mm polyethylene component provided the best range of motion and stability with less than 2mm gapping with medial and lateral stress and full extension without significant hyperextension. The patella was tracking with a no-thumbs technique. The trial poly was removed and once again the knee was checked for any loose, excess, or errant cement. The poly component was then inserted into position after cleaning and drying the tibial tray. The capsule was then reapproximated with a No. 1 Vicryl at multiple locations. The capsule was finally closed with a No. 2 Stratafix, barbed suture. The tourniquet was then released and the arthrotomy appeared watertight without significant bleeding. The second dosing of 1g TXA was started. Deep tissues were then reapproximated with 0 Vicryl and 2-0 Vicryl. The skin was closed with a running 3-0 Monocryl in a subcuticular fashion. This was reinforced with skin glue. A Mepilex silver dressing was applied along with a [id number] CHOCO wrap. A CryoCuff was applied. Gill was transferred to the hospital bed without difficulty an suffering no apparent complication. She has a good prognosis. Physical therapy will start today and without restrictions, weight-bearing as tolerated. Aspirin 81mg BID will be used for DVT prophylaxis.
== END 2022-01-08 14:28 | disposition home or self-care (01) ==
PROVIDERS: PCP Family Medicine; Visit Provider Student in an Organized Health Care Education/Training Program
PROC: (CPT 27447; principal; 2022-01-08 10:00)
DX: M17.11 Unilateral primary osteoarthritis, right knee (principal); E78.00 Pure hypercholesterolemia, unspecified; I10 Essential (primary) hypertension
CPT/HCPCS: 27447; 76942; 97162; 97530; J1885; J2001; J2370; J2405

== ENCOUNTER 2022-01-21 11:26 | Outpatient (CLI) | payer MEDICARE, SELFPAY ==
--- NOTE | 2022-01-21 10:45 | DI.RAD_ITS ---
Exam(s) XR KNEE RT 1V EXAM: XR KNEE RT 1V CLINICAL HISTORY: 1ST POST OP R TKA. TECHNIQUE: 2D digital imaging was performed. COMPARISON: CR XR KNEE RT 1V from 10/01/2021 FINDINGS: Single lateral view performed weight-bearing Stable satisfactory position of the components of the recently placed prosthesis. No abnormalities e vident on this lateral IMPRESSION: DATA REPOSITORY: RADIATION DOSE DELIVERED:
--- NOTE | 2022-01-21 10:45 | DI.RAD_ITS ---
Exam(s) XR STANDING ALIGNMENT EXAM: XR STANDING ALIGNMENT CLINICAL HISTORY: 1ST POST OP R TKA. TECHNIQUE: 2D digital imaging was performed. COMPARISON: CR XR STANDING ALIGNMENT from 10/01/2021 FINDINGS: Compared to 10/01/2021 there has been interval placement of a right knee prosthesis. Components appe ar to be in satisfactory position. No loosening evident. There is mild narrowing of the medial comp artment of the opposite-left knee. Both hips appear unremarkable as do the ankles. No ominous osseous lesions. IMPRESSION: As above. DATA REPOSITORY: RADIATION DOSE DELIVERED:
== END 2022-01-21 11:27 | disposition home or self-care (01) ==
LOC: DIORS 11:26
PROVIDERS: PCP Family Medicine; Referring Provider Family Medicine; Visit Provider Student in an Organized Health Care Education/Training Program
DX: Z96.651 Presence of right artificial knee joint (principal); Z47.1 Aftercare following joint replacement surgery; M25.862 Other specified joint disorders, left knee
CPT/HCPCS: 73560; 77073

== ENCOUNTER → 2022-02-21 10:46 | Outpatient (BNVA) | payer MEDICARE, SELFPAY | PROVIDERS: PCP Family Medicine; Visit Provider Student in an Organized Health Care Education/Training Program | DX: Z47.1 Aftercare following joint replacement surgery (principal); Z96.651 Presence of right artificial knee joint ==

== ENCOUNTER 2022-03-14 20:13 | Outpatient (REF) | payer MEDICARE, SELFPAY ==
[2022-03-14 19:31] LABS: ALT 18 U/L (14-59); AST 16 U/L (15-37); Albumin 4.2 g/dL (3.4-5.0); Alkaline Phosphatase 86 U/L (46-116); Anion Gap 11.3 mmol/L (3-11); BUN 21 mg/dL (7-18); Bilirubin, Total 0.4 mg/dL (0.2-1.0); CO2 24.7 mmol/L (21.0-32.0); CREATININE 0.9 mg/dL (0.55-1.02); Calcium 9.2 mg/dL (8.5-10.1); Chloride 104 mmol/L (98-107); Glucose 84 mg/dL (74-106); Potassium 4.2 mmol/L (3.5-5.1); Sodium 140 mmol/L (136-145); Total Protein 7.5 g/dL (6.4-8.2)
== END 2022-03-14 20:14 | disposition home or self-care (01) ==
LOC: NCHCN 20:13
PROVIDERS: PCP Family Medicine; Visit Provider Family Medicine
DX: I10 Essential (primary) hypertension (principal); E78.5 Hyperlipidemia, unspecified
CPT/HCPCS: 80053

== ENCOUNTER 2022-09-07 16:59 | Outpatient (REF) | payer MEDICARE, SELFPAY | END 2022-09-07 17:00 | disposition home or self-care (01) | LOC: LBN 16:59 | PROVIDERS: PCP Family Medicine; Visit Provider Physician Assistant | DX: N39.0 Urinary tract infection, site not specified (principal) | CPT/HCPCS: 87077; 87086; 87186 ==

== ENCOUNTER 2023-01-03 18:17 | Outpatient (REF) | payer MEDICARE, SELFPAY | END 2023-01-03 18:18 | disposition home or self-care (01) | LOC: LBN 18:17 | PROVIDERS: PCP Family Medicine; Visit Provider Physician Assistant Medical | DX: N39.0 Urinary tract infection, site not specified (principal) | CPT/HCPCS: 87086 ==

== ENCOUNTER 2023-03-18 17:54 | Outpatient (REF) | payer MEDICARE, SELFPAY ==
[2023-03-18 16:10] LABS: ALT 21 U/L (14-59); AST 17 U/L (15-37); Albumin 3.9 g/dL (3.4-5.0); Alkaline Phosphatase 77 U/L (46-116); Anion Gap 10.8 mmol/L (3-11); BUN 22 mg/dL (7-18); Bilirubin, Total 0.6 mg/dL (0.2-1.0); CO2 25.2 mmol/L (21.0-32.0); Calcium 9.2 mg/dL (8.5-10.1); Chloride 105 mmol/L (98-107); Estimated GFR 59.49 (mL/min/1.73m2); Glucose 89 mg/dL (74-106); Potassium 4.3 mmol/L (3.5-5.1); Sodium 141 mmol/L (136-145); TSH (W/Ref FT4) 1.29 uIU/mL (0.36-3.74); Total Protein 7.5 g/dL (6.4-8.2); Vitamin B12 529 pg/mL (193-986)
[2023-03-18 16:16] LABS: Hemoglobin A1C 5.3 % (<5.7)
== END 2023-03-18 17:55 | disposition home or self-care (01) ==
LOC: NCHCN 17:54
PROVIDERS: PCP Family Medicine; Visit Provider Family Medicine
DX: R20.2 Paresthesia of skin (principal); I10 Essential (primary) hypertension; R79.89 Other specified abnormal findings of blood chemistry
CPT/HCPCS: 80053; 82607; 83036; 84443

== ENCOUNTER 2023-04-03 02:06 | Outpatient (CLI) | payer MEDICARE, SELFPAY ==
--- NOTE | 2023-04-03 | DI.MAMMO_ITS ---
Exam(s) MAMMO SCREENING EXAM: MAMMO SCREENING CLINICAL HISTORY: SCREENING, Z12.31. TECHNIQUE: Bilateral full field digital CC and MLO mammographic images were obtained with 3D tomosyn thesis and utilizing computer aided detection (CAD). COMPARISON: Prior mammograms were reviewed. FINDINGS: There has been no significant change in the appearance and distribution of the fibroglandular tissue. There are no CAD designations. There are no new spiculated masses nor malignant appearing microcalcification groups. Benign-appearing asymmetric densities in the right breast remain unchanged from prior studies There is no significant architectural distortion nor skin thickening-retraction. IMPRESSION: No radiographic evidence of malignancy. BI-RADS Category 1 - Negative Breast Density - Category B - Scattered areas of fibroglandular density Breast density Category C or D implies that the patient has dense breast tissue. Dense breast tissue can make it harder to find cancer on a mammogram. Dense breast tissue is also associated with an incr eased risk of breast cancer. This information about the result of the mammogram report was provided to the patient to raise their awareness. Use this report when you speak with the patient about their risks for breast cancer, which includes their family history. At that time, you may recommend additional screening tests (Ultrasoun d or MRI) as these tests may add significant information. A negative radiographic report should not delay biopsy if a dominant or clinically suspicious mass is present. Up to ten percent of cancers are not identified on mammography. A negative report may reinforce clinical impression. Adenosis and dense breasts may obscure an underlying neoplasm. False positive reports average 6 to 10%. Patient will receive a letter notifying them of these results.
== END 2023-04-03 02:26 ==
PROVIDERS: PCP Family Medicine; Visit Provider Family Medicine
DX: Z12.31 Encounter for screening mammogram for malignant neoplasm of breast (principal)
CPT/HCPCS: 77063; 77067

== ENCOUNTER → 2023-06-24 02:40 | Outpatient (CLI) | payer MEDICARE, SELFPAY ==
--- NOTE | 2023-06-24 | DI.US_ITS ---
APPROVED REPORT EXAM: Comprehensive 2D, Doppler, and color-flow Echocardiogram Patient Location: Out-Patient [facility] Feeder: Sarah Vasquez RDCS (AE) Indications: Heart murmur systoloic Other Information Study Quality: Adequate. Technically limited study due to body habitus. Conclusion Left ventricular wall thickness and chamber size. Ejection fraction is 55 to 60%. Wall motion is no rmal Right ventricle is grossly normal in size and systolic function Both atria are normal in size Aortic valve is calcified and trileaflet. There is no hemodynamically significant aortic stenosis. There is trace aortic regurgitation Mitral annular calcification, trace mitral regurgitation Normal tricuspid valve with mild regurgitation. Estimated right ventricular systolic pressure is 30 mmHg Wall motion Left Ventricle The left ventricle is normal size. The left ventricular systolic function is normal. The left ventric ular ejection fraction is within the normal range. There is normal left ventricular wall thickness. T here is normal LV segmental wall motion. There is no ventricular septal defect visualized. LVEF is 55 -60%. Right Ventricle Right ventricle is grossly normal in size. Right ventricular systolic function is grossly normal. Atria The left atrium size is normal. The right atrium size is normal. The interatrial septum is intact wit h no evidence for an atrial septal defect. Aortic Valve Aortic valve is calcified. Aortic valve is trileaflet. No hemodynamically significant valvular aortic stenosis. Trace aortic regurgitation. Mitral Valve There is mitral annular calcification. No evidence of mitral valve stenosis. Trace mitral regurgitati on. Tricuspid Valve The tricuspid valve is normal in structure. There is no tricuspid valve stenosis. Mild tricuspid regu rgitation. The RVSP is 30.3 mmHg. Pulmonic Valve The pulmonary valve is normal in structure. There is no pulmonic valvular stenosis. Mild pulmonic reg urgitation. Great Vessels The aortic root is normal in size. The ascending aorta is normal in size. Aortic arch is normal in ca liber. IVC is normal in size and collapses >50% with inspiration. Pericardium There is no pericardial effusion. 2D Dimensions IVSD d PLAX 0.85 cm F: 0.6-1.0 LVPW d PLAX 0.93 cm F: 0.6 - 1.0 LVID d PLAX 4.44 cm F: 3.8 - 5.2 LVDs 3.15 cm F: 2.2 - 3.5 Ao Root d 2.84 cm F: 2.7 - 3.3 RA Area A4C 8.77 cm2 Ao Asc Diam d 3.05 cm F: 2.3 - 3.1 LV EF Catarinoichholtristan 55.1 % FS 28.40 % M-Mode TAPSE 1.88 cm (M/F) >1.7 LV Diastology MV E' medial 0.074 (>0.07 m/s) E/A Ratio 0.8 LV E/e MED 11.47 (<14) MV E Vmax 0.84 (0.4-1.3 m/s) MV E' lateral 0.080 (>0.1 m/s) MV A Vmax 1.05 (0.4-1.3 m/s) LV E/e LAT 10.54 (<14) MV E/E' medial 11.47 MV E/E' lateral 10.54 MV (E/E' average) 10.99 Aortic Valve LVOT Vmax 0.97 m/s AoV Area Vmax 1.38 cm2 LVOT Peak Grad 3.8 mmHg LVOT Mean Grad 2.0 mmHg LVOT Diam s 1.95 cm AoV Vmax 2.21 m/s Velocity Ratio 0.44 AoV Peak Grad 19.5 mmHg LVOT SV 74.66 mL AoV Mean Grad 10.5 mmHg AoV Area VTI 1.63 cm2 Mitral Valve MV DT 243 (160-240 msec) MV Vmax TIPS 1.04 m/s MV Mean Grad 1.9 (<2mmHg) MV VTI 0.297 m Pulmonary Valve PV Mean Grad 2.6 mmHg RVOT Peak Gr. 2.01 mmHg RVOT Mean Gr. 1.15 mmHg RVOT VTI 0.133 m RVOT Vmax 0.71 m/s Tricuspid Valve TR Peak Grad 27.3 mmHg TR Vmax 2.62 m/s RA Pressure 3.00 mmHg RVSP (TR) 30.3 mmHg
== END ==
PROVIDERS: PCP Family Medicine; Visit Provider Family Medicine
DX: R01.1 Cardiac murmur, unspecified (principal)
CPT/HCPCS: 93306

== ENCOUNTER 2023-09-03 12:23 | Outpatient (REF) | payer MEDICARE, SELFPAY ==
[2023-09-03 15:51] LABS: HGB 13.7 g/dL (11.2-15.7); MCHC 33.4 % (32.0-36.0); MCV 87 fL (80-95); MPV 11.1 fL (8.0-11.0); Platelet Count 169 10^3/uL (130-400); RBC 4.73 10^6/uL (3.93-5.22); RDW 13.6 % (11.7-14.6); RDW-SD 43.8 fL; WBC 6.45 10^3/uL (4.4-10.8)
[2023-09-03 16:00] LABS: Bilirubin Negative (Negative); Blood Negative (Negative); Clarity Clear (Clear); Glucose Negative (Negative); Ketones Negative (Negative); Leukocyte Esterase Moderate (Negative); Nitrite Negative (Negative); Specific Gravity 1.015 (1.005-1.025); Urobilinogen 0.2 mg/dL (Up to 0.2); pH 6.5 (5-8)
[2023-09-03 16:16] LABS: ALT 24 U/L (14-59); AST 19 U/L (15-37); Albumin 4.1 g/dL (3.4-5.0); Alkaline Phosphatase 78 U/L (46-116); Anion Gap 10.9 mmol/L (3-11); BUN 21 mg/dL (7-18); Bilirubin, Total 0.5 mg/dL (0.2-1.0); C-Reactive Protein 0.13 mg/dL (0.0-0.3); CO2 25.1 mmol/L (21.0-32.0); Calcium 9.5 mg/dL (8.5-10.1); Chloride 102 mmol/L (98-107); Estimated GFR 59.12 (mL/min/1.73m2); Glucose 90 mg/dL (74-106); Potassium 4.2 mmol/L (3.5-5.1); Sodium 138 mmol/L (136-145); TSH (W/Ref FT4) 1.31 uIU/mL (0.36-3.74); Total Protein 7.3 g/dL (6.4-8.2)
[2023-09-03 16:17] LABS: Bacteria Few HPF (Negative); C & S Indicated? Yes; Casts Negative LPF (Negative); Crystals Negative HPF (Negative); Epithelial Cells Few HPF (Negative); Mucus Trace (Negative)
== END 2023-09-03 12:24 | disposition home or self-care (01) ==
LOC: NCHCN 12:23
PROVIDERS: PCP Family Medicine; Visit Provider Family Medicine
DX: I10 Essential (primary) hypertension (principal); N95.1 Menopausal and female climacteric states; Z00.00 Encounter for general adult medical examination without abnormal findings
CPT/HCPCS: 80053; 85027; 81003; 81015; 84443; 86140; 87086

== ENCOUNTER → 2024-02-04 12:48 | Outpatient (BNVA) | payer MEDICARE, SELFPAY | PROVIDERS: PCP Family Medicine; Referring Provider Family Medicine; Visit Provider Nurse Practitioner Adult Health | DX: G56.03 Carpal tunnel syndrome, bilateral upper limbs (principal) | CPT/HCPCS: 95910; 99215 ==

== ENCOUNTER → 2024-04-12 09:05 | Outpatient (BNVA) | payer MEDICARE, SELFPAY | PROVIDERS: PCP Family Medicine; Referring Provider Family Medicine; Visit Provider Student in an Organized Health Care Education/Training Program | DX: G56.03 Carpal tunnel syndrome, bilateral upper limbs (principal) | CPT/HCPCS: 99213 ==

== ENCOUNTER 2024-05-12 07:48 | Day surgery (SDC) | payer MEDICARE, SELFPAY ==
[2024-05-12 08:40] VITALS: BP 140/85; PULSE 67; RESP 16; TEMP 36.3; O2SAT 97
--- NOTE | 2024-05-12 08:50 | W.ANESPRE ---
General Info Date of Service Date Performed: 05/12/24 Height: 5 ft 1 in Weight: 82.2 kg Body Mass Index (BMI): 34.2 Surgical Procedure: Operation Date: 05/12/24 11:10 Proposed Procedure Side Surgeon p Wrist ECTR Right Alejo Chavez MD Meds Allergies and Home Medications Allergies Allergy/AdvReac Type Severity Reaction Status Date / Time Penicillins Allergy Severe Anaphylaxsi Verified 05/12/24 08:39 s shellfish derived Allergy Severe Hives Verified 05/12/24 08:39 Home Medication Medication Instructions Recorded rosuvastatin 20 mg tablet (Crestor) 20 mg PO DAILY 03/13/18 omeprazole 20 mg capsule,delayed 20 mg PO DAILY PRN 08/16/20 release cholecalciferol (vitamin D3) 10 10 mcg PO DAILY 10/05/20 mcg (400 unit) capsule losartan 25 mg tablet 25 mg PO DAILY 05/22/21 oxybutynin chloride 10 mg mg PO 05/12/24 tablet,extended release 24 hr Current Visit Medications: Current Medications Generic Name Dose Route Start Last Admin Trade Name Freq PRN Reason Stop Dose Admin Ringer's Solution 1,000 mls @ 80 mls/hr 05/12/24 06:00 IV 05/12/24 23:59 INFUSION SEBLE Cefazolin Sodium/Dextrose 2 gm in 50 mls @ 100 mls/hr 05/12/24 06:00 Ancef Duplex IVPB 05/12/24 23:59 PREOP SEBLE IV Miscellaneous Supplies 1 each 05/12/24 06:00 Iv Access IV 05/12/24 23:59 DIRECTED SEBLE Sodium Chloride 0 ml 05/12/24 06:00 Normal Saline Flush 10 Ml Syr IV 05/12/24 23:59 PRN PRN Sodium Chloride 0 ml 05/12/24 06:00 Normal Saline 10 Ml Vial IJ 05/12/24 23:59 DIRECTED PRN Sterile Water 0 ml 05/12/24 06:00 Water,Injection,Sterile 10 Ml Vial IJ 05/12/24 23:59 DIRECTED PRN PFSH Active Problems Active Problems: Problem Status Onset Code Bilateral carpal tunnel syndrome G56.03 History of total right knee replacement 01/08/22 Z96.651 Overweight 03/13/18 E66.3 Urinary urgency R39.15 Urinary incontinence R32 Medical History Medical History Acute tear medial meniscus Colonoscopy planned Glossodynia HLD (hyperlipidemia) Hypercholesteremia Hypertension Overweight Stress Trochanteric bursitis of both hips Surgical History Surgical History Anterior Colporrhaphy History of tubal ligation Jaw fracture 1992 Hardware Status post cystoscopy Tobacco Smoking/Tobacco Use Status: Never Alcohol Alcohol Intake: current Alcohol intake frequency: a few times a week Alcohol type: beer and hard liquor Substance Use Substance use: Never Substance use type: does not use Vital Signs and Lab Results Vital Signs Most Recent Vital Signs in EMR: Most Recent Vital Signs Temp Pulse Resp BP Pulse Ox 36.3 C L 67 16 140/85 97 05/12/24 08:40 05/12/24 08:40 05/12/24 08:40 05/12/24 08:40 05/12/24 08:40 Lab Results Blood Type / Crossmatch: No Data to Display Complete Blood Count: No Data to Display Complete Metabolic Panel: No Data to Display Liver Function Panel: No Data to Display Coagulation Panel: No Data to Display Cardiac Panel: No Data to Display Arterial Blood Gas: No Data to Display Venous Blood Gas: No Data to Display Pancreas Panel: No Data to Display Thyroid Panel: No Data to Display Infectious Disease: No Data to Display Blood Cultures: No Data to Display Toxicology Panel: No Data to Display Imaging and Studies Imaging and Studies Study information below may be from another EMR and interpreted by another provider. Please see original notes in EMR for more complete details. Echocardiogram Summary: Patient Name: Gill Levi (Jackie) Unit #: [id number] Loc: Ordering Provider: Kiarra Degroot M.D. Status: [facility] Primary Care Provider: Kiarra Degroot M.D. Date of Exam: 06/24/23 Sex: F Admission Date: 06/24/23 : 1950 Age: 72 APPROVED REPORT EXAM: Comprehensive 2D, Doppler, and color-flow Echocardiogram Patient Location: Out-Patient Nuclear Unit Operator: Sarah Vasquez RDCS (AE) Indications: Heart murmur systoloic Other Information Study Quality: Adequate. Technically limited study due to body habitus. Conclusion Left ventricular wall thickness and chamber size. Ejection fraction is 55 to 60%. Wall motion is normal Right ventricle is grossly normal in size and systolic function Both atria are normal in size Aortic valve is calcified and trileaflet. There is no hemodynamically significant aortic stenosis. There is trace aortic regurgitation Mitral annular calcification, trace mitral regurgitation Normal tricuspid valve with mild regurgitation. Estimated right ventricular systolic pressure is 30 mmHg Wall motion Left Ventricle The left ventricle is normal size. The left ventricular systolic function is normal. The left ventricular ejection fraction is within the normal range. There is normal left ventricular wall thickness. There is normal LV segmental wall motion. There is no ventricular septal defect visualized. LVEF is 55-60%. Right Ventricle Right ventricle is grossly normal in size. Right ventricular systolic function is grossly normal. Atria The left atrium size is normal. The right atrium size is normal. The interatrial septum is intact with no evidence for an atrial septal defect. Aortic Valve Aortic valve is calcified. Aortic valve is trileaflet. No hemodynamically significant valvular aortic stenosis. Trace aortic regurgitation. Mitral Valve There is mitral annular calcification. No evidence of mitral valve stenosis. Trace mitral regurgitation. Tricuspid Valve The tricuspid valve is normal in structure. There is no tricuspid valve stenosis. Mild tricuspid regurgitation. The RVSP is 30.3 mmHg. Pulmonic Valve The pulmonary valve is normal in structure. There is no pulmonic valvular stenosis. Mild pulmonic regurgitation. Great Vessels The aortic root is normal in size. The ascending aorta is normal in size. Aortic arch is normal in caliber. IVC is normal in size and collapses >50% with inspiration. Pericardium There is no pericardial effusion. 2D Dimensions IVSD d PLAX 0.85 cm F: 0.6-1.0 LVPW d PLAX 0.93 cm F: 0.6 - 1.0 LVID d PLAX 4.44 cm F: 3.8 - 5.2 LVDs 3.15 cm F: 2.2 - 3.5 Ao Root d 2.84 cm F: 2.7 - 3.3 RA Area A4C8.77 cm2 Ao Asc Diam d 3.05 cm F: 2.3 - 3.1 LV EF Teichholz 55.1 % FS28.40 % M-Mode TAPSE 1.88 cm (M/F) >1.7 LV Diastology MV E' medial0.074 (>0.07 m/s)E/A Ratio 0.8 LV E/e MED11.47 (<14)MV E Vmax 0.84 (0.4-1.3 m/s) MV E' lateral0.080 (>0.1 m/s)MV A Vmax 1.05 (0.4-1.3 m/s) LV E/e LAT10.54 (<14) MV E/E' medial 11.47 MV E/E' szorvdv68.54 MV (E/E' average)10.99 Aortic Valve LVOT Vmax 0.97 m/sAoV Area Vmax1.38 cm2 LVOT Peak Grad 3.8 mmHg LVOT Mean Grad 2.0 mmHg LVOT Diam s 1.95 cm AoV Vmax2.21 m/s Velocity Ratio 0.44 AoV Peak Grad19.5 mmHg LVOT SV 74.66 mL AoV Mean Grad10.5 mmHg AoV Area VTI1.63 cm2 Mitral Valve MV DT 243 (160-240 msec) MV Vmax TIPS 1.04 m/s MV Mean Grad 1.9 (<2mmHg) MV VTI 0.297 m Pulmonary Valve PV Mean Grad 2.6 mmHgRVOT Peak Gr.2.01 mmHg RVOT Mean Gr.1.15 mmHg RVOT VTI0.133 m RVOT Vmax 0.71 m/s Tricuspid Valve TR Peak Grad 27.3 mmHgTR Vmax 2.62 m/s RA Pressure 3.00 mmHg RVSP (TR) 30.3 mmHg Ordered By: Kiarra Degroot M.D. CC: Dictated By: Vivi Goins M.D. 06/24/23 0916 <Electronically signed by Vivi Goins M.D. in OV> 06/24/23927 Transcribed By: Vivi Goins MD This is privileged, confidential information intended only for the provider named. Any use or distribution by any person other than this provider is strictly prohibited. If you receive this report in error, please notify us immediately at [phone] and return the original report to us at the address above. Thank-you. Anesthesia Assessment and Plan Anesthesia History Personal History: No History of Anesthesia Complications Family History: No Family History of Anesthesia Complications Exercise Tolerance Exercise Tolerance: Metabolic Equivalents>4 Pertinent Negatives Pertinent Negatives: No Major Cardiovascular Symptoms or Complaints, No Major Pulmonary Symptoms or Complaints and No History of CVA/TIA Cardiac & Pulmonary Exam Cardiac Exam: Normal S1/S2 Heart Sounds Pulmonary Exam: Clear Bilateral Breath Sounds Implantable Cardiac Device Does patient have a Pacemaker or an ICD?: No Airway Exam Known Difficult Airway: No Mallampati Class: 2 Mouth Opening: Normal (> 3cm) Thyromental Distance: Greater than 3 cm Neck Range of Motion: Full ROM Neck Circumference: Normal Teeth Condition: Normal Dentition ASA Classification ASA Score: ASA 2 Emergency Case?: No NPO Status NPO Status: NPO Clears >2 hours, Solids >8 hours Anesthesia Plan Resuscitation Status: Full Code Anesthesia Technique: General Anesthesia Airway Planned: Natural Airway Monitors Used: Standard Monitors
[2024-05-12 08:51] VITALS: BMI 34.2
[2024-05-12] MEDS: Lactated Ringers 1,000 ML 80 ML IV (08:57)
--- NOTE | 2024-05-12 09:10 | W.PREOPHP ---
Assessment and Plan Assessment and plan (1) Bilateral carpal tunnel syndrome: Status: Acute Assessment and plan: Christiana is a 73-year-old female who has bilateral carpal tunnel syndrome, worse on the right side. She has failed nighttime bracing continues to be limited by pain, numbness and tingling. Therefore, I recommended proceeding with carpal tunnel release. She is here today for the right side and we will likely proceed with the left side in the near future. I discussed the technical details of carpal tunnel release and that I perform an endoscopic release, but would make a larger, open, incision if necessary for visualization. I discussed the risks of the procedure to include, but not limited to, bleeding, infection, palmar pain, stiffness, damage to nerves, damage to vessels, damage to tendons, weakness, recurrence, and incomplete release. Given these risks, Christiana desires to proceed. History of Present Illness History of Present Illness Chief Complaint: Bilateral hand numbness and tingling. Narrative: Christiana is a 73-year-old female who I know previously from knee replacement. She has done very well from the knee replacement. However, over the past year or so she had worsening pain, numbness, and tingling about both hands, right worse than left. This has been most bothersome at night. She also has pain when she is driving as well as sometimes holding her hand in a stable, constant position. She is on some bracing. She saw neurology and was diagnosed with bilateral carpal tunnel syndrome, worse on the right side. Despite the bracing she continues have some symptoms, particular at night and would like this to be resolved. Therefore, she is here today for right carpal tunnel release, potentially be followed by the left side in the future. Review of Systems All systems reviewed & are unremarkable except as noted in HPI and below PFSH All Active Problems Bilateral carpal tunnel syndrome (Acute) History of total right knee replacement (Acute 01/08/22) Overweight (Acute 03/13/18) Urinary urgency (Acute) Urinary incontinence (Acute) Medical History Colonoscopy planned HLD (hyperlipidemia) Trochanteric bursitis of both hips Stress Acute tear medial meniscus Glossodynia Hypertension Overweight Hypercholesteremia Surgical History History of tubal ligation Status post cystoscopy Jaw fracture 1991 Hardware Anterior Colporrhaphy Family History Mother Diabetes Essential hypertension Hyperlipidemia Father Essential hypertension Hyperlipidemia Myocardial infarction Social History Smoking/Tobacco Use Status: Never Smoking risk assessment performed?: Yes Alcohol Intake: current Alcohol Intake frequency: a few times a week Alcohol type: beer and hard liquor Drug use: Never Substance use type: does not use Housing: house 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 [employer] Current gender identity: female Do you feel safe at home: Yes Do you feel safe in your relationship?: Yes Meds Allergies and Home Medications Allergies Allergy/AdvReac Type Severity Reaction Status Date / Time Penicillins Allergy Severe Anaphylaxsi Verified 05/12/24 08:39 s shellfish derived Allergy Severe Hives Verified 05/12/24 08:39 Home Medications Medication Instructions Recorded Confirmed Type rosuvastatin 20 mg tablet (Crestor) 20 mg PO DAILY 03/13/18 05/12/24 History omeprazole 20 mg capsule,delayed 20 mg PO DAILY PRN 08/16/20 05/12/24 History release cholecalciferol (vitamin D3) 10 10 mcg PO DAILY 10/05/20 05/12/24 History mcg (400 unit) capsule losartan 25 mg tablet 25 mg PO DAILY 05/22/21 05/12/24 History acetaminophen 500 mg tablet 500 mg PO Q6H PRN PRN pain #40 tabs 05/12/24 Rx meloxicam 15 mg tablet 15 mg PO DAILY PRN #30 tabs 05/12/24 Rx oxybutynin chloride 10 mg mg PO 05/12/24 History tablet,extended release 24 hr tramadol 50 mg tablet 50 mg PO Q6H PRN #6 tabs 05/12/24 Rx Exam Resp Effort & Inspection: normal respiratory effort Auscultation: clear to auscultation bilaterally Cardio Rate: regular rate Rhythm: regular rhythm Extrem Other: Evaluation of the left upper extremity shows no overlying skin changes or masses. There is no significant fullness or areas of fluctuance. There is a positive Faiza's compression test and positive Phalen's test. Decreased sensation in the median nerve distribution. Palpable radial pulse. Brief evaluation of the right upper extremity shows very similar findings that she has some decrease sensation the median nerve distribution which is worsened with Phalen's test and Faiza's compression test. Results Last Vital Signs Temp 36.3 C L 05/12/24 08:40 Pulse 67 05/12/24 08:40 Resp 16 05/12/24 08:40 BP 140/85 05/12/24 08:40 Pulse Ox 97 05/12/24 08:40
[2024-05-12] MEDS: ceFAZolin 2 GM/50 ML BAG IVPB (10:36)
[2024-05-12] MEDS: Lidocaine 1% Pres-Free W/EPI 1/200,000 10 ML VIAL (10:44)
[2024-05-12 10:53] VITALS: BP 102/61; PULSE 85; RESP 18; TEMP 36.5; O2SAT 97
--- NOTE | 2024-05-12 11:00 | ROE_ITS ---
Date of service: 05/12/24 Time of Service: 10:45 Operative Note Operative Note DATE OF PROCEDURE: 05/12/24 PRE-OP DIAGNOSIS: Right Carpal Tunnel Syndrome POST-OP DIAGNOSIS: same PROCEDURE: Right Endoscopic Carpal Tunnel Release SURGEON: Alejo Chavez ANESTHESIA TYPE: General:No Airway Refer to Anesthesia Record ESTIMATED BLOOD LOSS: 0 PATHOLOGY: none sent TOURNIQUET TIME: 3 COMPLICATIONS: None Patient was transported to: same day Patient's condition: stable Indications: I have seen Christiana in clinic for symptoms of carpal tunnel syndrome. The numbness, tingling, and pain limited function. Clinical exam findings with nerve conduction tests confirmed the diagnosis of carpal tunnel syndrome. Nonoperative measures such as bracing, time, activity modifications had been tried but disability and pain persisted. I discussed carpal tunnel release with the patient. I reviewed the risks of the procedure to include, but not limited to, bleeding, infection, pain, stiffness, incomplete release, damage to nerves or vessels, persistent numbness, recurrence. Despite these risks, the patient elected to proceed. Findings: There was tightened carpal tunnel. This was dilated and released successfully with the endoscopic with increased space within the tunnel. The antebrachial fascia was released proximally freeing the median nerve at the wrist. Procedure Description: Christiana was greeted in the preoperative holding area where the correct side was identified and marked. The consent was reviewed with the patient and signed. The history and physical was updated. All questions were answered. She was taken back to the operating room. The patient was placed into the supine position on the operating room table with the right arm on an arm board. A nonsterile tourniquet was placed high onto the arm. All bony prominences were well padded. Prophylactic antibiotics in the form of Cefazolin were administered. The right arm was then prepped with Chloraprep and draped in a standard fashion with stockinette and extremity drape. A timeout to confirm correct identity, side and site, procedure, allergies, anesthesia, and medical concerns was performed. The surgical site was marked in the volar wrist creases in line with the radial border of the fourth ray. This area was anesthetized with approximately 6cc of 1% Lidocaine. The limb was then exsanguinated with an Esmarch. The skin was incised with a 15 blade, approximately 1cm. The skin only was cut and the deeper tissue was dissected bluntly with a tenotomy scissor, avoiding passing nerve and venous structures. The fascia was penetrated and opened bluntly. A two-prong skin hook was placed under this proximal fascial edge. A series of hamate finders were used to identify and dilate the carpal tunnel. Synovial elevator was used to free synovial attachments to the underside of the transverse carpal ligament. My thumb was kept in the palm to mariah the distal extent of the carpal tunnel and correctly position the hand. The [employer] end oscope was inserted without difficulty and without resistance. Excellent visualization showed horizontally running fibers of the transverse carpal ligament (TCL). The distal extent of the TCL was visualized and the end of the scope palpated with the thumb. The blade was elevated and withdrawn from distal to proximal. The TCL was split into two flaps. The endoscope was reinserted to confirm complete release and any remnant ligament was incised. The scope was withdrawn and the proximal aspect of the carpal tunnel was grossly inspected and appeared release with the median nerve visible. The antebrachial fascia at the level of the wrist was then freed from the overlying skin and then the underlying median nerve with blunt dissection. This was transected longitudinally for about 3cm proximal to the wrist incision. The wound was then irrigated with easy flow of irrigant distally and proximally. The incision was closed with a single 4-0 Nylon suture. The wound was dressed with Xeroform, Gauze, Kerlix and Babak. The tourniquet was deflated with the initial dressing and held with some pressure. Blood flow returned easily to all digits with capillary refill less than 2 seconds. The patient tolerated the procedure well and was returned to the Same Day Surgery area in a stable condition suffering no known complication.
--- NOTE | 2024-05-12 11:04 | PDOC.DSDIS_ITS ---
Date of service: 05/12/24 Time of Service: 11:04 Discharge Plan Disposition Patient Disposition: Home Condition: Good Discharge Details Reason For Visit: Right Carpal Tunnel Syndrome Attending Provider: Alejo Chavez Primary Care Provider: Kiarra Degroot V Home Meds and New Rx's Prescriptions: New acetaminophen 500 mg tablet 500 mg PO Q6H PRN PRN (Reason: pain) Qty: 40 3RF meloxicam 15 mg tablet 15 mg PO DAILY PRNQty: 30 0RF tramadol 50 mg tablet 50 mg PO Q6H PRNQty: 6 0RF Continued cholecalciferol (vitamin D3) 10 mcg (400 unit) capsule 10 mcg PO DAILY losartan 25 mg tablet 25 mg PO DAILY rosuvastatin [Crestor] 20 MG tablet 20 mg PO DAILY omeprazole 20 mg capsule,delayed release(DR/EC) 20 mg PO DAILY PRN oxybutynin chloride 10 mg tablet extended release 24hr PO Patient Comments: TAKE 1 TABLET BY MOUTH EVERY DAY Discharge Instructions Stand Alone Forms: Anesthesia Discharge Inst., Scott Walter Tunnel Release, Olena Terry ([facility]U) Referrals: Alejo Chavez MD [ [facility] STAFF PHYSICIAN] - Activity:: Elevate Remove Dressings/Wound Care:: 48 hours Shower/Bathe:: 48 hours Diet:: As Tolerated Discharge Orders Discharge Orders: Discharge Order (Routine); Ordered 05/12/24 Ordered By: Alejo Chavez
[2024-05-12 11:23] VITALS: BP 135/81; PULSE 93; RESP 16; TEMP 36.6; O2SAT 94
--- NOTE | 2024-05-12 11:36 | W.ANESPOSTOP ---
Postoperative Evaluation Date, Time and Location Date Performed: 05/12/24 Time Performed: 10:55 Patient Location: Day Surgery Unit Vital Signs Most Recent Imported Vital Signs: Most Recent Vital Signs Temp Pulse Resp BP Pulse Ox 36.6 C 93 H 16 135/81 94 05/12/24 11:23 05/12/24 11:23 05/12/24 11:23 05/12/24 11:23 05/12/24 11:23 Pain Score Most Recent Pain Score: Most Recent Pain Score Pain Level 0 05/12/24 11:23 Assessment Mental Status: Awake (Alert & Oriented to Patient Baseline) Airway and Respiratory Function: Patent airway with normal (patient baseline) respiratory exam Cardiovascular Function: Hemodynamically Stable Hydration Status: Adequately Hydrated Nausea & Vomiting: No Nausea or Vomiting Pain: Pt. Denies Any Pain Peripheral Nerve Block: Patient did not receive a nerve block
== END 2024-05-12 11:32 | disposition home or self-care (01) ==
PROVIDERS: PCP Family Medicine; Visit Provider Student in an Organized Health Care Education/Training Program
PROC: 01N54ZZ Release Median Nerve, Percutaneous Endoscopic Approach (ICD-10-PCS; CPT 29848; principal; 2024-05-12 11:00)
DX: G56.01 Carpal tunnel syndrome, right upper limb (principal)
CPT/HCPCS: 29848; J0690; J2001; J2004; J2704

== ENCOUNTER → 2024-05-21 10:20 | Outpatient (BNVA) | payer MEDICARE, SELFPAY | PROVIDERS: PCP Family Medicine; Referring Provider Family Medicine | DX: Z47.89 Encounter for other orthopedic aftercare (principal) ==

== ENCOUNTER 2024-06-23 00:53 | Outpatient (CLI) | payer MEDICARE, SELFPAY ==
--- NOTE | 2024-06-23 | DI.MAMMO_ITS ---
Exam(s) MAMMO SCREENING EXAM: MAMMO SCREENING CLINICAL HISTORY: SCREENING,Z12.31 TECHNIQUE: Mammograms were interpreted according to the usual protocol including computer analysis w [employer] CAD system, tomosynthesis and C-view imaging. COMPARISON: 2013 through 2022 FINDINGS: The breasts are composed of scattered fibroglandular densities, Breast Density category B. No suspicious masses or suspicious microcalcifications are seen. No skin thickening or abnormal axillary lymph nodes are seen. There has been no significant change from prior exams. IMPRESSION: BI-RADS Category 1, Negative mammogram Yearly screening mammography is recommended. Breast Density - Category B, scattered fibroglandular densities. A negative radiographic report should not delay biopsy if a dominant or clinically suspicious mass is present. Up to ten percent of cancers are not identified on mammography. A negative report may reinforce clinical impression. Adenosis and dense breasts may obscure an underlying neoplasm. False positive reports average 6 to 10%. Patient will receive a letter notifying them of these results.
== END 2024-06-23 01:13 ==
LOC: DI 00:54
PROVIDERS: PCP Family Medicine; Visit Provider Family Medicine
DX: Z12.31 Encounter for screening mammogram for malignant neoplasm of breast (principal)
CPT/HCPCS: 77063; 77067

== ENCOUNTER 2025-03-24 15:23 | Outpatient (REF) | payer MEDICARE, SELFPAY ==
[2025-03-24 20:39] LABS: Hemoglobin A1C 5.3 % (<5.7)
[2025-03-24 20:56] LABS: ALT 18 U/L (14-59); AST 19 U/L (15-37); Albumin 4.2 g/dL (3.4-5.0); Alkaline Phosphatase 81 U/L (46-116); Anion Gap 7.4 mmol/L (3-11); BUN 26 mg/dL (7-18); Bilirubin, Total 0.4 mg/dL (0.2-1.0); CO2 30.6 mmol/L (21.0-32.0); Calcium 9.1 mg/dL (8.5-10.1); Calculated LDL 62 mg/dL (<100); Chloride 103 mmol/L (98-107); Cholesterol 200 mg/dL (<200); Estimated GFR 58.75 (mL/min/1.73m2); Glucose 89 mg/dL (74-106); HDL Cholesterol 88 mg/dL (>or=50); Potassium 4.6 mmol/L (3.5-5.1); Sodium 141 mmol/L (136-145); TSH 0.79 uIU/mL (0.36-3.74); Total Protein 7.4 g/dL (6.4-8.2); Triglyceride 251 mg/dL (<150)
== END 2025-03-24 15:24 | disposition home or self-care (01) ==
LOC: NCHCN 15:23
PROVIDERS: PCP Family Medicine; Visit Provider Family Medicine
DX: I10 Essential (primary) hypertension (principal); Z13.1 Encounter for screening for diabetes mellitus; Z13.29 Encounter for screening for other suspected endocrine disorder; E78.5 Hyperlipidemia, unspecified
CPT/HCPCS: 80053; 80061; 83036; 84443

== ENCOUNTER 2025-03-29 01:37 | Outpatient (CLI) | payer MEDICARE, SELFPAY ==
--- NOTE | 2025-03-29 | DI.RAD_ITS ---
Exam(s) XR CHEST 2V PA LATERAL EXAM: XR CHEST 2V PA LATERAL CLINICAL HISTORY: PAROXYSMAL DYSPNEA,R06.00. TECHNIQUE: 2D digital imaging was performed. COMPARISON: CR CHEST 2 VIEWS PA,LAT from 08/13/2011 FINDINGS: 2 views: Heart size is normal. The mediastinum is not widened. There are no confluent infiltrates nor pleural effusions and no pneumothorax. However, there is a sl ight difference in densities of the pily thoraces. Patient is not rotated to explain this finding. Correlation with any clinical findings of pulmonary embolus recommended. IMPRESSION: No infiltrates but asymmetric density of the hemithoraceswhich was not evident on prior chest x-ray. If clinically indicated follow-up CT scan with pulmonary embolus protocol can be performed. DATA REPOSITORY: RADIATION DOSE DELIVERED:
== END 2025-03-29 01:57 ==
PROVIDERS: PCP Family Medicine; Visit Provider Family Medicine
DX: R06.00 Dyspnea, unspecified (principal); R91.8 Other nonspecific abnormal finding of lung field
CPT/HCPCS: 71046

== ENCOUNTER 2025-04-07 02:32 | Outpatient (CLI) | payer MEDICARE, SELFPAY ==
--- NOTE | 2025-04-07 | DI.CT_ITS ---
Exam(s) CT CHEST WO EXAM: CT CHEST WO CLINICAL HISTORY: Dyspnea, R06.00. TECHNIQUE: Multi planar reconstructions were performed. CONTRAST MATERIAL: None COMPARISON: No exams were available for comparison FINDINGS: CHEST: LUNGS: There is an area of ground-glass infiltrate in the lateral aspect of the right upper lobe whic h measures 2.5 by 2 cm, non cavitated. There are no other significant focal findings in the right up per lobe. There are mild increased subpleural markings in the right lower lobe. No focal left lung findings. No pleural effusions. No significant focal findings in the trachea and mainstem bronchi. No bronchiectasis. MEDIASTINUM: There is no obvious hilar nor mediastinal adenopathy. No obvious axillary adenopathy CARDIAC: Heart size is normal. There is no pericardial effusion.Caliber of the thoracic aorta is wit hin normal limits. VISUALIZED UPPER ABDOMEN:No significant adrenal masses. Exophytic cyst off the posterior cortex of t he right kidney measuring 2 cm. Possible mass versus cyst in the superior pole of the left kidney, t his measuring 2 cm. None OSSEOUS: No significant osseous lesions.. IMPRESSION: 1. The main finding is an area of significant peripheral ground-glass infiltrate in the right upper l obe measuring approximately 2.5 x 2.2 cm. No cavitation. No other infiltrates and no pleural effusi ons nor obvious intrathoracic adenopathy. 2. Follow-up to resolution is recommended. Consider repeat CT scan in 3 months, earlier if clinicall y indicated. RADIATION DOSE DELIVERED: 149.93mGy.cm Total DLP DATA REPOSITORY: All CT scans at this facility are submitted to the National Radiology Data Registry (NRDR) Dose Index Registry (DIR) with the [employer] (A[employer]). RADIATION OPTIMIZATION: All CT scans at this facility use at least one of these dose optimization te chniques: automated exposure control; mA and/or kV adjustment per patient size (includes targeted exa ms where dose is matched to clinical indication); or iterative reconstruction.
== END 2025-04-07 02:52 ==
LOC: DI 02:32
PROVIDERS: PCP Family Medicine; Visit Provider Physician Assistant Medical
DX: R06.00 Dyspnea, unspecified (principal); R91.8 Other nonspecific abnormal finding of lung field
CPT/HCPCS: 71250

== ENCOUNTER 2025-04-14 01:16 | Outpatient (CLI) | payer MEDICARE, SELFPAY ==
--- NOTE | 2025-04-14 | DI.US_ITS ---
Exam(s) US PELVIS TRANSVAGINAL EXAM: US PELVIS TRANSVAGINAL CLINICAL HISTORY: Postmenopausal bleeding, N95.0 TECHNIQUE: Ultrasound of the pelvis was performed both transabdominal and transvaginal. COMPARISON: US US ECHOCARDIOGRAM from 06/24/2023 FINDINGS: UTERUS: Retroflexed and retroverted. Measures 6 cm length x 3 cm AP x 3.5 cm wide. There are no uterine fibroids. Endometrial thickness measures 5 mm.. Appears homogeneous. However, this is mildly thickened for this age group. There is no fluid in the endometrial canal. CERVIX: There are no obvious nabothian cysts. RIGHT OVARY: Not able to be identified. LEFT OVARY: Measures 0.2 x 1.2 x 1.7 cm Appears age-appropriate. CUL-DE-SAC: No free fluid evident. IMPRESSION: 1. Endometrial thickness is 5 mm which is thickened for this age group. Follow- up recommended. 2. Left ovary unremarkable. Right ovary not visualized (which is not uncommon in this age group) 3. No free fluid evident in the adnexal regions and cul-de-sac. DATA REPOSITORY:
== END 2025-04-14 01:36 ==
LOC: DI 01:16
PROVIDERS: PCP Physician Assistant Medical; Visit Provider Family Medicine
DX: N95.0 Postmenopausal bleeding (principal); R93.89 Abnormal findings on diagnostic imaging of other specified body structures
CPT/HCPCS: 76830; 76856

== ENCOUNTER 2025-04-25 15:31 | Outpatient (REF) | payer MEDICARE, SELFPAY | END 2025-04-25 15:32 | disposition home or self-care (01) | LOC: LBN 15:31 | PROVIDERS: PCP Physician Assistant Medical; Visit Provider Obstetrics & Gynecology | DX: R30.0 Dysuria (principal); Z12.4 Encounter for screening for malignant neoplasm of cervix | CPT/HCPCS: 87077; 88142; 87086; 87624 ==

== ENCOUNTER → 2025-05-05 09:40 | Outpatient (BNVA) | payer MEDICARE, SELFPAY | PROVIDERS: PCP Physician Assistant Medical; Referring Provider Physician Assistant Medical; Visit Provider Internal Medicine Pulmonary Disease | DX: R91.8 Other nonspecific abnormal finding of lung field (principal); R05.9 Cough, unspecified | CPT/HCPCS: 99215 ==

== ENCOUNTER 2025-05-18 18:07 | Outpatient (REF) | payer MEDICARE, SELFPAY | END 2025-05-18 18:08 | disposition home or self-care (01) | LOC: LBN 18:07 | PROVIDERS: PCP Physician Assistant Medical; Visit Provider Obstetrics & Gynecology | DX: D26.0 Other benign neoplasm of cervix uteri (principal) | CPT/HCPCS: 88305 ==

== ENCOUNTER 2025-06-13 04:46 | Outpatient (CLI) | payer MEDICARE, SELFPAY ==
[2025-06-13] MEDS: Inhaler, Assist Device 1 EACH MC (14:16)
[2025-06-13] MEDS: Levalbuterol HFA 15 GM INH 4 PUFF IH (14:16)
--- NOTE | 2025-06-13 14:41 | W.PFT ---
Date of service: 06/13/25 Time of Service: 12:56 Pulmonary Function Test Result Indications: Pulmonary infiltrates Impression 1. Good patient effort was noted. ATS standards for reproducibility were met. 2. Normal spirometry. 3. Following the administration of a bronchodilator there was not a significant response 4. TLC was normal. No evidence of restrictive lung disease 5. DLCO was normal indicating normal alveolar gas exchange
== END 2025-06-13 04:47 | disposition home or self-care (01) ==
LOC: RT 04:46
PROVIDERS: PCP Physician Assistant Medical; Visit Provider Internal Medicine Pulmonary Disease
DX: R91.8 Other nonspecific abnormal finding of lung field (principal)
CPT/HCPCS: 94060; 94726; 94729

== ENCOUNTER 2025-06-29 01:10 | Outpatient (CLI) | payer MEDICARE, SELFPAY ==
--- NOTE | 2025-06-29 | DI.MAMMO_ITS ---
Exam(s) MAMMO SCREENING EXAM: MAMMO SCREENING CLINICAL HISTORY: SCREENING,Z12.31 TECHNIQUE: Bilateral full field digital CC and MLO mammographic images were obtained with 3D tomosynthesis and utilizing computer aided detection (CAD). COMPARISON: Comparison is made with prior examinations. FINDINGS: Masses/Architectural Distortion: No suspicious masses or areas of architectural distortion are present. There is a stable nodule in the left breast. Microcalcifications: No suspicious pleomorphic-type are seen. Skin Thickening/Nipple Retraction: None. IMPRESSION: 1. No significant interval change with no specific features of malignancy noted. 2. Unless there is more urgent need, screening mammography is recommended, as per [employer] guidelines. BI-RADS Category 1 - Negative Breast Density - Category B - There are scattered areas of fibroglandular density. Breast density Category C or D implies that the patient has dense breast tissue. Dense breast tissue can make it harder to find cancer on a mammogram. Dense breast tissue is also associated with an increased risk of breast cancer. This information about the result of the mammogram report was provided to the patient to raise their awareness. Use this report when you speak with the patient about their risks for breast cancer, which includes their family history. At that time, you may recommend additional screening tests (Ultrasound or MRI) as these tests may add significant information. A negative radiographic report should not delay biopsy if a dominant or clinically suspicious mass is present. Up to ten percent of cancers are not identified on mammography. A negative report may reinforce clinical impression. Adenosis and dense breasts may obscure an underlying neoplasm. False positive reports average 6 to 10%. Patient will receive a letter notifying them of these results.
== END 2025-06-29 01:30 ==
LOC: DI 01:10
PROVIDERS: PCP Physician Assistant Medical; Visit Provider Family Medicine
DX: Z12.31 Encounter for screening mammogram for malignant neoplasm of breast (principal); R92.323 Mammographic fibroglandular density, bilateral breasts
CPT/HCPCS: 77063; 77067

== ENCOUNTER 2025-07-01 00:28 | Outpatient (CLI) | payer MEDICARE, SELFPAY ==
--- NOTE | 2025-07-01 05:45 | DI.CT_ITS ---
Exam(s) CT CHEST WO EXAM: CT CHEST WO CLINICAL HISTORY: Pulmonary infiltrates,reevaluation,R91.8. TECHNIQUE: Multi planar reconstructions were performed. CONTRAST MATERIAL: None COMPARISON: CR XR CHEST 2V PA LATERAL from 03/29/[address] CHEST WO from 04/07/2025 FINDINGS: CHEST: LUNGS: There is no change in the appearance and size of the non cavitated infiltrate in the sub apical aspect of the right upper lobe when compared to the CT scan of 04/07/2025. No other significant right lung findings nor pleural effusions. In the opposite-left lung there is a small benign calcified granuloma in the lateral basal segment of the left lower lobe which is unchanged. There are no infiltrates in the left lung and no pleural effusions. MEDIASTINUM: There is no obvious hilar nor mediastinal adenopathy. Partially visualized thyroid unremarkable.No supraclavicular adenopathy. No axillary adenopathy. CARDIAC: Heart size is normal. There is no pericardial effusion.Caliber of the thoracic aorta is within normal limits. VISUALIZED UPPER ABDOMEN:Again noted is an abnormal appearing density partially exophytic off the superior pole left kidney which measures approximately 2.5 by 2 cm. This requires further investigation to rule out renal neoplasm. There is also an exophytic probable benign cyst off the posterior aspect of the opposite- right kidney. Entire kidneys are not included in the field of view of this study. There are no adrenal masses. OSSEOUS: No significant osseous lesions.No fractures.. IMPRESSION: 1. Compared to the prior CT scan of 04/07/2025 there is no significant change in the size and configuration of the abnormal non cavitated right upper lobe infiltrate. This requires close follow-up to rule out neoplasm. There is no obvious intrathoracic adenopathy evident. 2. Abnormal findings in the kidneys again noted. Probable cyst in right kidney but a solid mass possible in the upper lobe of the left kidney. Recommend dedicated renal imaging to rule out malignancy in the upper pole the left kidney. RADIATION DOSE DELIVERED: 151.59mGy.cm Total DLP DATA REPOSITORY: All CT scans at this facility are submitted to the National Radiology Data Registry (NRDR) Dose Index Registry (DIR) with the [employer] ([employer]). RADIATION OPTIMIZATION: All CT scans at this facility use at least one of these dose optimization techniques: automated exposure control; mA and/or kV adjustment per patient size (includes targeted exams where dose is matched to clinical indication); or iterative reconstruction.
== END 2025-07-01 00:48 ==
PROVIDERS: PCP Physician Assistant Medical; Visit Provider Internal Medicine Pulmonary Disease
DX: R91.8 Other nonspecific abnormal finding of lung field (principal); R93.49 Abnormal radiologic findings on diagnostic imaging of other urinary organs
CPT/HCPCS: 71250

== ENCOUNTER → 2025-07-07 08:56 | Outpatient (BNVA) | payer MEDICARE, SELFPAY | PROVIDERS: PCP Physician Assistant Medical; Referring Provider Physician Assistant Medical; Visit Provider Internal Medicine Pulmonary Disease | DX: R91.8 Other nonspecific abnormal finding of lung field (principal); N28.89 Other specified disorders of kidney and ureter; R05.9 Cough, unspecified | CPT/HCPCS: 99214 ==

== ENCOUNTER 2025-07-28 01:35 | Outpatient (CLI) | payer MEDICARE, SELFPAY ==
--- NOTE | 2025-07-28 07:00 | DI.US_ITS ---
Exam(s) US RENAL EXAM: US RENAL CLINICAL HISTORY: renal mass noted on CT chest imaging RENAL MASS N28.89 DISORDER. TECHNIQUE: Perales scale imaging and color doppler were used. COMPARISON: CT CT CHEST WO from 04/07/[address] CHEST WO from 07/01/2025 FINDINGS: Right kidney: 9.6cm Echogenicity: Normal Hydronephrosis: No Cyst or mass: 2 centimeter simple cyst mid pole. Nephrolithiasis: No Left kidney: 9.5cm Echogenicity: Normal Hydronephrosis: No Cyst or mass: 2 centimeter cyst mid left kidney. 2 centimeter cystic lesion at the superior pole of the left kidney is not ideally visualized, partially shadowed. There is a septation. Nephrolithiasis: No Bladder:Normal. Prevoid vol:286 cc Postvoid vol:0 cc IMPRESSION: Cystic lesion at the superior pole of the left kidney is not well evaluated on the current exam. Recommend contrast-enhanced CT. Two other benign-appearing cysts in the mid portions of both kidneys are also present. DATA REPOSITORY:
== END 2025-07-28 01:55 ==
LOC: DI 01:36
PROVIDERS: PCP Physician Assistant Medical; Visit Provider Internal Medicine Pulmonary Disease
DX: N28.89 Other specified disorders of kidney and ureter (principal)
CPT/HCPCS: 76770

== ENCOUNTER 2025-08-15 02:21 | Outpatient (CLI) | payer MEDICARE, SELFPAY ==
--- NOTE | 2025-08-15 06:50 | DI.CT_ITS ---
Exam(s) CT ABDOMEN WO/W EXAM: CT ABDOMEN WO/W CLINICAL HISTORY: renal mass on CT,n28.89. TECHNIQUE: Imaging Protocol: Axial computed tomography images with coronal and sagittal reformatted images were created and reviewed CONTRAST MATERIAL: Intravenous: Omnipaque 350 Contrast volume:75 ml Oral: no COMPARISON: CT CT CHEST WO from 07/01/2025 US US RENAL from 07/28/2025 FINDINGS: ABDOMEN: Lung Bases: No acute findings. Liver: Normal density. No measurable mass. Gallbladder and biliary tract: No radiodense calculus. No biliary dilation. Pancreas: Normal density, no abnormal calcifications or inflammatory process. Spleen: Normal. Kidneys: Normal size, contour and axis. No radiodense stones or obstructive uropathy. 2.5 centimeter cyst is noted at the upper pole of the left kidney which corresponds to the previously questioned abnormality on noncontrast CT. No septation or solid component is present. An additional simple cyst is noted at the mid to lower pole of the left kidney. There is a simple cyst at the mid right kidney. Adrenal glands: No masses seen. Bowel: Unremarkable. Abdominal Aorta: Abdominal portion non-dilated. Atherosclerotic changes. Lymph nodes: Within normal limits. Bones: Unremarkable for age. Soft tissues: Unremarkable. IMPRESSION: The lesion questioned at upper pole left kidney on noncontrast chest CT is consistent with a simple cyst. Other simple cysts are present on both kidneys. RADIATION DOSE DELIVERED: 1,154.45mGy.cmTotal DLP DATA REPOSITORY: All CT scans at this facility are submitted to the National Radiology Data Registry (NRDR) Dose Index Registry (DIR) with the [employer] ([employer]). RADIATION OPTIMIZATION: All CT scans at this facility use at least one of these dose optimization techniques: automated exposure control; mA and/or kV adjustment per patient size (includes targeted exams where dose is matched to clinical indication); or iterative reconstruction.
[2025-08-15 09:49] LABS: Estimated GFR 58.39 (mL/min/1.73m2)
[2025-08-15] MEDS: Omnipaque 350 MG/ML 100 ML BTL IJ (09:57)
[2025-08-15] MEDS: Normal Saline - Diluent 50 ML VIAL IJ (09:57)
[2025-08-15] MEDS: Normal Saline Flush 10 ML SYR IVP (09:58)
== END 2025-08-15 02:41 ==
LOC: DI 02:21
PROVIDERS: PCP Physician Assistant Medical; Visit Provider Internal Medicine Pulmonary Disease
DX: N28.89 Other specified disorders of kidney and ureter (principal)
CPT/HCPCS: 74170; 82565; J3490

== ENCOUNTER → 2025-10-03 03:43 | Outpatient (CLI) | payer MEDICARE, SELFPAY ==
--- NOTE | 2025-10-03 07:15 | DI.US_ITS ---
Exam(s) US PELVIS TRANSVAGINAL EXAM: US PELVIS TRANSVAGINAL CLINICAL HISTORY: F/U US; re-evaluate ES given PCB,H/O POSTMENOPAUSAL BLEEDING,Z87.42. TECHNIQUE: Transabdominal and transvaginal pelvic ultrasound was performed using standard protocol. COMPARISON: US US PELVIS TRANSVAGINAL from 04/14/2025 US US RENAL from 07/28/[address] ABDOMEN WO/W from 08/15/2025 FINDINGS: UTERUS: Position: Retroflexed and retroverted. Size: 4.7 long by 2.0 AP by 3.8 transverse cm Endometrium: 0.5 cm to 0.7 cm. This is thickened in this postmenopausal patient. Myometrium: Unremarkable. Cervix: Unremarkable. OVARIES: Right: 2.2 x 0.7 x 1.0 cm Cyst or mass: No suspicious cystic or solid masses. Left: 2.4 x 1.5 x 1.3 cm Cyst or mass: No suspicious cystic or solid masses. DOPPLER: Color: Symmetric and uniform flow to both ovaries. CUL-DE-SAC: Free fluid: None. Other: None. IMPRESSION: 1. Thickened endometrial stripe in this postmenopausal patient. Follow-up is recommended. 2. Unremarkable bilateral ovaries. DATA REPOSITORY:
== END ==
LOC: DI 03:43
PROVIDERS: PCP Physician Assistant Medical; Visit Provider Obstetrics & Gynecology
DX: Z09 Encounter for follow-up examination after completed treatment for conditions other than malignant neoplasm (principal); Z87.42 Personal history of other diseases of the female genital tract; R93.89 Abnormal findings on diagnostic imaging of other specified body structures
CPT/HCPCS: 76830; 76856